=== PATIENT | male | born 1970 | race American Indian/Alaskan Native ===

== ENCOUNTER 2020-08-30 16:28 | Inpatient (IN) | payer OTHER, SELFPAY ==
[2020-08-30] MEDS ORDERED: cefTRIAXone/NS 1 GM/50 ML 1 GM/50 ML BAG IV ONE (20:37)
[2020-08-30] MEDS ORDERED: ONDANSETRON 4 MG/2 ML INJ IV ONE (20:37)
[2020-08-30] MEDS ORDERED: SODIUM CHLORIDE 0.9% 1000 ML 1,000 ML IV ONE (20:37)
[2020-08-30] MEDS ORDERED: AZITHROMYCIN/NS 500 MG/250 ML 500 MG/250 ML BAG IV ONE (20:37)
--- NOTE | 2020-08-30 20:57 | Emergency Department Report ---
<FAREED FOX III - Last Filed: 08/30/20 22:17> ED Shortness of Breath HPI - General Chief Complaint: Dyspnea/Respdistress Stated Complaint: COVID+/WEAK Time Seen by Provider: 08/30/20 20:36 - Related Data Allergies Allergy/AdvReac Type Severity Reaction Status Date / Time No Known Allergies Allergy Unverified 08/30/20 16:57 ED Course - Reevaluation(s) Reevaluation #1: I reviewed the findings and management of this patient in real-time and I have personally seen and examined this patient and participated in the decision making for this patient with the midlevel. Patient is a 49-year-old male that presents emergency room with complaints of difficulty breathing and respiratory symptoms. Patient found to have Covid pneumonia. Patient is hypoxic. Patient is currently on oxygen therapy. Patient has not had the COVID-19 vaccine. I examined the patient. Patient's lung sounds are clear to auscultation. Patient's CV exam shows normal S1-S2. Patient's abdominal exam is negative. Patient skin exam is negative. I discussed all results with patient. I discussed plan of care with patient. Patient agrees with plan of care and admission. Patient to be admitted to the hospitalist service. 08/30/20 22:17 - Consultations Consultation #1: Hospitalist consulted for admission. Hospitalist to admit patient. 08/30/20 22:19 ED Medical Decision Making - Lab Data Result diagrams: 08/30/20 20:50 08/30/20 20:50 ED Disposition Clinical Impression: COVID-19, Hypoxia Disposition: DC-09 OP ADMIT IP TO THIS HOSP Condition: Serious Referrals: PRIMARY CARE, [Primary Care Provider] - 3-5 Days Print Language: VINCENTIAN <CHARLI DENISE - Last Filed: 08/30/20 22:34> ED Shortness of Breath HPI - General Source: patient Mode of arrival: Ambulatory Limitations: No Limitations - History of Present Illness Initial Comments: Patient is a 49-year-old male presents emergency room complaints of shortness of breath that began a week ago. He states that he tested positive for COVID-19 yesterday. He has associated cough, generalized weakness, vomiting, diarrhea, fever, chills, generalized body aches. He denies any sore throat, ear pain, abdominal pain, chest pain. No past medical history. No allergies to medications. He states he is a non-smoker. He states he just got back from [place]. ED Review of Systems ROS: Stated complaint: COVID+/WEAK Other details as noted in HPI Comment: All other systems reviewed and negative ED Past Medical Hx - Past Medical History Previous Medical History?: No - Surgical History Past Surgical History?: No ED Physical Exam - General Limitations: No Limitations General appearance: alert, in no apparent distress - Head Head exam: Present: atraumatic, normocephalic - Eye Eye exam: Present: normal appearance - ENT ENT exam: Present: mucous membranes moist - Respiratory Respiratory exam: Present: decreased breath sounds. Absent: respiratory distress, wheezes, rales, rhonchi, stridor, chest wall tenderness, accessory mu scle use, prolonged expiratory - Cardiovascular Cardiovascular Exam: Present: regular rate, normal rhythm, normal heart sounds. Absent: systolic murmur, diastolic murmur, rubs, gallop - Neurological Exam Neurological exam: Present: alert, oriented X3 - Psychiatric Psychiatric exam: Present: normal affect, normal mood - Skin Skin exam: Present: warm, dry, intact ED Course Vital Signs 08/30/20 08/30/20 16:28 16:57 Temperature 98.7 F Pulse Rate 72 102 H Respiratory 18 Rate Blood Pressure 124/76 110/66 [Right] O2 Sat by Pulse 90 98 Oximetry ED Medical Decision Making - Lab Data Result diagrams: 08/30/20 20:50 08/30/20 20:50 Lab Results 08/30/20 08/30/20 08/30/20 Range/Units 20:50 20:50 20:50 WBC 10.3 (4.5-11.0) K/mm3 RBC 3.56 L (3.65-5.03) M/mm3 Hgb 11.6 L (11.8-15.2) gm/dl Hct 34.2 L (35.5-45.6) % MCV 96 H (84-94) fl MCH 33 H (28-32) pg MCHC 34 (32-34) % RDW 13.1 L (13.2-15.2) % Plt Count 292 (140-440) K/mm3 [place] % (Auto) [facility] D-Dimer 612.11 H (0-234) ng/mlDDU Sodium (137-145) mmol/L Potassium (3.6-5.0) mmol/L Chloride (98-107) mmol/L Carbon Dioxide (22-30) mmol/L Anion Gap mmol/L BUN (9-20) mg/dL Creatinine (0.8-1.3) mg/dL Estimated GFR ml/min BUN/Creatinine Ratio % Glucose 109 H (75-100) mg/dL Calcium (8.4-10.2) mg/dL Total Bilirubin (0.1-1.2) mg/dL AST (5-40) units/L ALT (7-56) units/L Alkaline Phosphatase (35-129) units/L Lactate Dehydrogenase 1104 H (91-180) units/L C-Reactive Protein 12.20 H (0.00-1.30) mg/dL Total Protein (6.3-8.2) g/dL Albumin (3.9-5) g/dL Albumin/Globulin Ratio % 08/30/ Range/Units 20:50 WBC (4.5-11.0) K/mm3 RBC (3.65-5.03) M/mm3 Hgb (11.8-15.2) gm/dl Hct (35.5-45.6) % MCV (84-94) fl MCH (28-32) pg MCHC (32-34) % RDW (13.2-15.2) % Plt Count (140-440) K/mm3 [place] % (Auto) D-Dimer (0-234) ng/mlDDU Sodium 133 L (137-145) mmol/L Potassium 4.3 (3.6-5.0) mmol/L Chloride 93.4 L (98-107) mmol/L Carbon Dioxide 25 (22-30) mmol/L Anion Gap 19 mmol/L BUN 16 (9-20) mg/dL Creatinine 1.0 (0.8-1.3) mg/dL Estimated GFR > 60 ml/min BUN/Creatinine Ratio 16 % Glucose 111 H (75-100) mg/dL Calcium 8.7 (8.4-10.2) mg/dL Total Bilirubin 2.30 H (0.1-1.2) mg/dL AST 194 H (5-40) units/L ALT 106 H (7-56) units/L Alkaline Phosphatase 123 (35-129) units/L Lactate Dehydrogenase (91-180) units/L C-Reactive Protein (0.00-1.30) mg/dL Total Protein 7.0 (6.3-8.2) g/dL Albumin 4.1 (3.9-5) g/dL Albumin/Globulin Ratio 1.4 % Vital Signs 08/30/20 08/30/20 16:28 16:57 Temperature 98.7 F Pulse Rate 72 102 H Respiratory 18 Rate Blood Pressure 124/76 110/66 [Right] O2 Sat by Pulse 90 98 Oximetry - Radiology Data Radiology results: report reviewed Ordering Physician: GUCCI YING Date of Service: 08/30/20 Procedure(s): XR chest routine 2V Accession Number(s): [id number] cc: GUCCI YING Fluoro Time In Minutes: CHEST 2 VIEWS INDICATION / CLINICAL INFORMATION: COVID +, SOB. COMPARISON: None available. FINDINGS: SUPPORT DEVICES: None. HEART / MEDIASTINUM: No significant abnormality. LUNGS / PLEURA: Mild increased interstitial prominence within the lungs with peribronchial cuffing No pneumothorax. Signer Name: Michael Claros MD Signed: 08/30/2020 9:25 PM Workstation Name: [id number] Transcribed By: CW Dictated By: BREONNA CLAROS MD Electronically Authenticated By: BREONNA CLAROS MD Signed Date/Time: 08/30/202124 DD/ 23 TD/TT: - Medical Decision Making Patient is a 49-year-old male presents emergency room complaints of shortness of breath that began a week ago. He states that he tested positive for COVID-19 yesterday. He has associated cough, generalized weakness, vomiting, diarrhea, fever, chills, generalized body aches. He denies any sore throat, ear pain, abdominal pain, chest pain. No past medical history. No allergies to medications. He states he is a non-smoker. He states he just got back from [place]. Patient's oxygen saturation is 90% on room air, patient placed on nasal cannula with improvement of his oxygen. Lab significant for elevated inflammatory markers consistent with COVID-19. CXR: SUPPORT DEVICES: None. HEART / MEDIASTINUM: No significant abnormality. LUNGS / PLEURA: Mild increased interstitial prominence within the lungs with peribronchial cuffing No pneumothorax. due to COVID 19 with PNA and hypoxia pt will be admitted. discussed case with DR. Fox, ER attending who agrees with admission. Dr. Loja, hospitalist will accept and resume care of pt. Critical Care Time: Yes Critical care time in (mins) excluding proc time.: 35 Critical care attestation.: If time is entered above; I have spent that time in minutes in the direct care of this critically ill patient, excluding procedure time. Critical Care Time: critical care time includes multiple reexaminations, interpretation of diagnostic and laboratory testing, consultations ED Disposition Is pt being admited?: Yes Does the pt Need Aspirin: No Time of Disposition: 21:58
--- NOTE | 2020-08-30 21:29 | XRay Report ---
CHEST 2 VIEWS INDICATION / CLINICAL INFORMATION: COVID +, SOB. COMPARISON: None available. FINDINGS: SUPPORT DEVICES: None. HEART / MEDIASTINUM: No significant abnormality. LUNGS / PLEURA: Mild increased interstitial prominence within the lungs with peribronchial cuffing No pneumothorax. Signer Name: Michael Claros MD Signed: 08/30/2020 9:25 PM Workstation Name: [id number]
[2020-08-30 21:31] LABS: Hematocrit 34.2 % (35.5-45.6); Hemoglobin 11.6 gm/dl (11.8-15.2); Mean Corpuscular HGB Conc 34 % (32-34); Mean Corpuscular Volume 96 fl (84-94); Platelet Count 292 K/mm3 (140-440); Red Blood Count 3.56 M/mm3 (3.65-5.03); Red Cell Distribution Width 13.1 % (13.2-15.2)
[2020-08-30 21:41] LABS: Alanine Aminotransferase 106 units/L (7-56); Albumin 4.1 g/dL (3.9-5); BUN/Creatinine Ratio 16; Blood Urea Nitrogen 16 mg/dL (9-20); Calcium 8.7 mg/dL (8.4-10.2); Hemolysis Index 11
[2020-08-30 21:42] LABS: C-Reactive Protein 12.2 mg/dL (0.00-1.30)
[2020-08-30] MEDS ORDERED: dexAMETHasone 4 MG/ML VIAL IV ONE (21:52)
[2020-08-30 22:21] LABS: RBC Morphology Normal; Total Cells Counted 100
--- NOTE | 2020-08-30 23:07 | History and Physical Report ---
History of Present Illness Date of examination: 08/30/20 Date of admission: 08/30/20 22:11 Chief complaint: shortness of breath History of present illness: This is ED work-up a 49-year-old male that presents emergency room with complaints of difficulty breathing and respiratory symptoms. Patient found to have Covid pneumonia. Patient is hypoxic. Patient is currently on oxygen therapy. Patient has not had the COVID-19 vaccine. WBC 10.3, hemoglobin 11.6, platelets 292, D-dimer 612.11, sodium 133, potassium 4.3, creatinine 1.0 serum glucose 111 ferritin six 614.0, AST 192, ALT 106, lactate dehydrogenase 1104, CEA reactive protein 12.2. Patient seen at bedside in ED. Patient is on oxygen by nasal cannula. Patient said he was tested positive for Covid 19. He reported a history of shortness of breath for about 1 week that made him go and check for Covid. I reviewed patient medication records vital signs and lab values. Will start patient on Covid protocol including airborne and contact isolation. Past History Past Medical History: denies: hyperthyroidism, hypertension, hyperlipidemia Past Surgical History: No surgical history Social history: lives with family, alcohol abuse (marijuana use) Family history: hypertension (father diet of juli) Medications and Allergies Allergies Allergy/AdvReac Type Severity Reaction Status Date / Time No Known Allergies Allergy Unverified 08/30/20 16:57 Review of Systems Constitutional: weakness, malaise, no lethargy Ears, nose, mouth and throat: no epistaxis, no bleeding gums Cardiovascular: shortness of breath Gastrointestinal: no melena, no hematochezia Rectal: no itching, no hemorrhoids Musculoskeletal: muscle weakness, muscle cramps, myalgias Integumentary: no rash, no pruritis Psychiatric: no anxiety, no suicidal ideation, no disorientation Hematologic/Lymphatic: no easy bruising, no easy bleeding Allergic/Immunologic: no urticaria, no allergic rhinitis Exam - Constitutional Vitals: Temp Pulse Resp BP Pulse Ox 98.7 F 80 22 121/68 98 08/30/20 16:57 08/30/20 22:30 08/30/20 22:30 08/30/20 22:30 08/30/20 22:30 General appearance: Present: mild distress, well-nourished - EENT Eyes: Present: PERRL ENT: hearing intact, clear oral mucosa - Neck Neck: Present: supple, normal ROM - Respiratory Respiratory effort: normal Respiratory: bilateral: CTA - Cardiovascular Heart Sounds: Present: S1 & S2. Absent: rub, click - Extremities Extremities: pulses symmetrical, No edema Peripheral Pulses: within normal limits - Abdominal General gastrointestinal: Present: soft, non-tender, non-distended, normal bowel sounds Male genitourinary: Present: normal - Integumentary Integumentary: Present: clear, warm, dry - Musculoskeletal Musculoskeletal: gait normal, strength equal bilaterally - Psychiatric Psychiatric: appropriate mood/affect, intact judgment & insight - Neurologic Neurologic: CNII-XII intact, moves all extremities - Allied Health Allied health notes reviewed: nursing Results - Labs CBC & Chem 7: 08/30/20 20:50 08/30/20 20:50 Labs: Abnormal lab results 08/30/20 08/30/20 08/30/20 Range/Units 20:50 20:50 20:50 RBC (3.65-5.03) M/mm3 Hgb (11.8-15.2) gm/dl Hct (35.5-45.6) % MCV (84-94) fl MCH (28-32) pg RDW (13.2-15.2) % Seg Neuts % (Manual) (40.0-70.0) % Monocytes % (Manual) (0.0-7.3) % Monocytes # (Manual) (0.0-0.8) K/mm3 D-Dimer 612.11 H (0-234) ng/mlDDU Sodium (137-145) mmol/L Chloride (98-107) mmol/L Glucose 109 H (75-100) mg/dL Ferritin 6614.0 H (30.0-300.0) ng/mL Total Bilirubin (0.1-1.2) mg/dL AST (5-40) units/L ALT (7-56) units/L Lactate Dehydrogenase 1104 H (91-180) units/L C-Reactive Protein 12.20 H (0.00-1.30) mg/dL 08/30/20 08/30/20 Range/Units 20:50 20:50 RBC 3.56 L (3.65-5.03) M/mm3 Hgb 11.6 L (11.8-15.2) gm/dl Hct 34.2 L (35.5-45.6) % MCV 96 H (84-94) fl MCH 33 H (28-32) pg RDW 13.1 L (13.2-15.2) % Seg Neuts % (Manual) 71.0 H (40.0-70.0) % Monocytes % (Manual) 13.0 H (0.0-7.3) % Monocytes # (Manual) 1.3 H (0.0-0.8) K/mm3 D-Dimer (0-234) ng/mlDDU Sodium 133 L (137-145) mmol/L Chloride 93.4 L (98-107) mmol/L Glucose 111 H (75-100) mg/dL Ferritin (30.0-300.0) ng/mL Total Bilirubin 2.30 H (0.1-1.2) mg/dL AST 194 H (5-40) units/L ALT 106 H (7-56) units/L Lactate Dehydrogenase (91-180) units/L C-Reactive Protein (0.00-1.30) mg/dL Assessment and Plan - Patient Problems (1) COVID-19 Current Visit: Yes Status: Acute Plan to address problem: Continue isolation airborne Continue systemic steroid and empiric antibiotic Encourage patient prone position and the use of incentive spirometer [place] inflammatory markers Patient has elevated D-dimer we will check CT of the chest rule out PE ID consult. Follow-up with plan of care. Ascorbic acid, zinc sulfate, selenium, and vitamin D supplements (2) Acute respiratory failure with hypoxia Current Visit: Yes Status: Acute Plan to address problem: Continue bronchodilator and oxygen supplement ABG and human geography instructor consult (3) Marijuana use Current Visit: Yes Status: Acute Plan to address problem: Discussed cessation (4) DVT prophylaxis Current Visit: Yes Status: Acute Plan to address problem: Lovenox
[2020-08-30] MEDS ORDERED: traZODone 50 MG TAB PO PRN (23:20)
[2020-08-30] MEDS ORDERED: ONDANSETRON 4 MG/2 ML INJ IV PRN (23:21)
[2020-08-30] MEDS ORDERED: MORPHINE 2 MG/1 ML INJ IV PRN (23:21)
[2020-08-30] MEDS ORDERED: METOCLOPRAMIDE 10 MG/2 ML INJ IV PRN (23:21)
[2020-08-30] MEDS ORDERED: MAGNESIUM HYDROXIDE (MOM) ORAL LIQD UDC PO PRN (23:21)
[2020-08-30] MEDS ORDERED: oxyCODONE /ACETAMINOPHEN 5-325MG TAB PO PRN (23:21)
[2020-08-30] MEDS ORDERED: NALOXONE 0.4 MG/1 ML INJ IV PRN (23:21)
[2020-08-30] MEDS ORDERED: SENNOSIDES 8.6 MG TAB PO PRN (23:21)
[2020-08-30] MEDS ORDERED: ALUM-MAG HYDROXIDE-SIMETHICONE 200-200-20MG/5ML ORAL LIQD 30 ML PO PRN (23:21)
[2020-08-30] MEDS ORDERED: ACETAMINOPHEN 325 MG TAB PO PRN (23:21)
--- NOTE | 2020-08-31 02:03 | Cat Scan Report ---
CTA CHEST WITH IV CONTRAST INDICATION: Patient has difficulty breathing / Hypoxia / Covid-19 Positive. TECHNIQUE: Axial CT images were obtained through the chest after injection of 100 cc Omnipaque 350 IV contrast. 3 plane MIP reconstructions were produced. All CT scans at this location are performed using CT dose reduction for ALARA by means of automated exposure control. COMPARISON: 2 views of the chest from 08/30/2020. FINDINGS: PULMONARY ARTERIES: No pulmonary emboli. AORTA AND ARTERIES: The aorta is normal in caliber. No significant atherosclerosis. No other signific ant abnormality. HEART: No significant abnormality. MEDIASTINUM: No significant abnormality. LUNGS: Generalized bilateral groundglass opacities/consolidations are noted without a suspicious nodu le or mass. No pneumothorax or pleural effusion. ADDITIONAL FINDINGS: None. UPPER ABDOMEN: No acute findings. A left upper renal pole cyst measures up to 3.1 cm. BONES: No significant osseous abnormality. IMPRESSION: 1. No CT evidence for pulmonary embolism. 2. Bilateral pneumonia. Signer Name: Arron Franklin MD Signed: 08/31/2020 1:58 AM Workstation Name: [id number]
[2020-08-31] MEDS: SODIUM CHLORIDE 0.9% 1000 ML 1,000 ML IV SCH (02:56)
[2020-08-31 09:01] LABS: Basophils % (Auto) 0.3 % (0.0-1.8); Hematocrit 31.8 % (35.5-45.6); Hemoglobin 10.8 gm/dl (11.8-15.2); Lymphocytes # (Auto) 0.6 K/mm3 (1.2-5.4); Lymphocytes % (Auto) 8.1 % (13.4-35.0); Mean Corpuscular HGB Conc 34 % (32-34); Mean Corpuscular Volume 95 fl (84-94); Monocytes % (Auto) 14.1 % (0.0-7.3); Platelet Count 340 K/mm3 (140-440); Red Blood Count 3.36 M/mm3 (3.65-5.03); Red Cell Distribution Width 12.7 % (13.2-15.2)
[2020-08-31 09:27] LABS: Alanine Aminotransferase 93 units/L (7-56); Albumin 3.7 g/dL (3.9-5); BUN/Creatinine Ratio 19; Blood Urea Nitrogen 15 mg/dL (9-20); Calcium 8.7 mg/dL (8.4-10.2); Hemolysis Index 10
[2020-08-31] MEDS: dexAMETHasone 4 MG/ML VIAL IV SCH (09:46)
[2020-08-31] MEDS: cefTRIAXone/NS 1 GM/50 ML 1 GM/50 ML BAG IV SCH (09:47)
[2020-08-31] MEDS: AZITHROMYCIN/NS 500 MG/250 ML 500 MG/250 ML BAG IV SCH (09:47)
[2020-08-31] MEDS: CHOLECALCIFEROL (VIT D3) 1000 UNIT (25 mcg) TAB PO SCH (09:47)
[2020-08-31] MEDS: FAMOTIDINE 20 MG/2 ML INJ IV SCH ×2 (09:48→22:35)
[2020-08-31] MEDS: ZINC SULFATE 220 MG CAP PO SCH (09:48)
[2020-08-31] MEDS: ASCORBIC ACID 500 MG TAB PO SCH (09:48)
[2020-08-31] MEDS ORDERED: dexAMETHasone 4 MG/ML VIAL IV SCH (10:00)
[2020-08-31] MEDS ORDERED: ENOXAPARIN 40 MG/0.4 ML INJ SUB-Q SCH (10:00)
--- NOTE | 2020-08-31 10:51 | Progress Note ---
Assessment and Plan Assessment and plan: This is ED work-up a 49-year-old male that presents emergency room with complaints of difficulty breathing and respiratory symptoms. Patient found to have Covid pneumonia. Patient is hypoxic. Patient is currently on oxygen therapy. Patient has not had the COVID-19 vaccine. WBC 10.3, hemoglobin 11.6, platelets 292, D-dimer 612.11, sodium 133, potassium 4.3, creatinine 1.0 serum glucose 111 ferritin six 614.0, AST 192, ALT 106, lactate dehydrogenase 1104, CEA reactive protein 12.2. Patient seen at bedside in ED. Patient is on oxygen by nasal cannula. Patient said he was tested positive for Covid 19. He reported a history of shortness of breath for about 1 week that made him go and check for Covid. I reviewed patient medication records vital signs and lab values. Will start patient on Covid protocol including airborne and contact isolation. Chest x-ray shows peribronchial cuffing. 08/31: Patient on 4 L of oxygen await ID for remdesivir ordered. Continue steroids at this time per protocol. Will change to full dose anticoagulation although CTA is negative for PE. Will monitor inflammatory markers. 15 minutes counseling given to the patient on tobacco use and marijuana use he verbalized understanding. We will give 20 of Lasix x3 days due to borderline low blood pressure. And continue to monitor for improvement. (1) COVID-19 Current Visit: Yes Status: Acute Plan to address problem: Continue isolation airborne Continue systemic steroid and empiric antibiotic Encourage patient prone position and the use of incentive spirometer Mannitol inflammatory markers Patient has elevated D-dimer we will check CT of the chest rule out PE ID consult. Follow-up with plan of care. Ascorbic acid, zinc sulfate, selenium, and vitamin D supplements (2) Acute respiratory failure with hypoxia Current Visit: Yes Status: Acute Plan to address problem: Continue bronchodilator and oxygen supplement ABG and loom fixer supervisor consult (3) Marijuana use Current Visit: Yes Status: Acute Plan to address problem: Discussed cessation (4) mild hypertensive (5) DVT prophylaxis Current Visit: Yes Status: Acute Plan to address problem: Lovenox History Interval history: Patient seen and examined this morning is on 4 L of oxygen. Reported that he presented due to dizziness and weakness. He did not take the vaccine because he did not trust that. Now he plans to take it after he recovers. Hospitalist Physical - Physical exam Narrative exam: VITAL SIGNS: Reviewed. GENERAL: The patient appears normally developed, obese vital signs as documented. HEAD: No signs of head trauma. EYES: Pupils are equal. Extraocular motions intact. EARS: Hearing grossly intact. MOUTH: Oropharynx is normal. NECK: No adenopathy, no JVD. CHEST: Chest with diminished breath sounds bilaterally. No wheezes, rales, or rhonchi. CARDIAC: Mildly tachycardic otherwise regular rhythm. S1 and S2, without murmurs, gallops, or rubs. VASCULAR: No Edema. Peripheral pulses normal and equal in all extremities. ABDOMEN: Soft, non tender and non distended. No rebound or guarding, and no masses palpated. Bowel Sounds normal. MUSCULOSKELETAL: Good range of motion of all major joints. Extremities without clubbing, cyanosis or edema. NEUROLOGIC EXAM: Alert and oriented x 3 No focal sensory or strength deficits. Speech normal. Follows commands. PSYCHIATRIC: Mood anxious l. SKIN: detail exam as documented in skin assessment - Constitutional Vitals: Temp Pulse Resp BP Pulse Ox 97.6 F 71 20 108/66 96 08/31/20 02:28 08/31/20 02:28 08/31/20 02:28 08/31/20 02:28 08/31/20 02:28 General appearance: Present: mild distress, well-nourished Results - Labs CBC & Chem 7: 08/31/20 08:23 08/31/20 08:23 Labs: Laboratory Last Values WBC 7.2 K/mm3 (4.5-11.0) 08/31/20 08:23 RBC 3.36 M/mm3 (3.65-5.03) L 08/31/20 08:23 Hgb 10.8 gm/dl (11.8-15.2) L 08/31/20 08:23 Hct 31.8 % (35.5-45.6) L 08/31/20 08:23 MCV 95 fl (84-94) H 08/31/20 08:23 MCH 32 pg (28-32) 08/31/20 08:23 MCHC 34 % (32-34) 08/31/20 08:23 RDW 12.7 % (13.2-15.2) L 08/31/20 08:23 Plt Count 340 K/mm3 (140-440) 08/31/20 08:23 Lymph % (Auto) 8.1 % (13.4-35.0) L 08/31/20 08:23 [place] % (Auto) 14.1 % (0.0-7.3) H 08/31/20 08:23 Eos % (Auto) 0.0 % (0.0-4.3) 08/31/20 08:23 Baso % (Auto) 0.3 % (0.0-1.8) 08/31/20 08:23 Lymph # (Auto) 0.6 K/mm3 (1.2-5.4) L 08/31/20 08:23 [place] # (Auto) 1.0 K/mm3 (0.0-0.8) H 08/31/20 08:23 Eos # (Auto) 0.0 K/mm3 (0.0-0.4) 08/31/20 08:23 Baso # (Auto) 0.0 K/mm3 (0.0-0.1) 08/31/20 08:23 Add Manual Diff Complete 08/30/20 20:50 Total Counted 100 08/30/20 20:50 Seg Neutrophils % 77.5 % (40.0-70.0) H 08/31/20 08:23 Seg Neuts % (Manual) 71.0 % (40.0-70.0) H 08/30/20 20:50 Lymphocytes % (Manual) 16.0 % (13.4-35.0) 08/30/20 20:50 Monocytes % (Manual) 13.0 % (0.0-7.3) H 08/30/20 20:50 Nucleated RBC % Not Reportable 08/30/20 20:50 Seg Neutrophils # 5.6 K/mm3 (1.8-7.7) 08/31/20 08:23 Seg Neutrophils # Man 7.3 K/mm3 (1.8-7.7) 08/30/20 20:50 Band Neutrophils # 0.0 K/mm3 08/30/20 20:50 Lymphocytes # (Manual) 1.6 K/mm3 (1.2-5.4) 08/30/20 20:50 Abs React Lymphs (Man) 0.0 K/mm3 08/30/20 20:50 Monocytes # (Manual) 1.3 K/mm3 (0.0-0.8) H 08/30/20 20:50 Eosinophils # (Manual) 0.0 K/mm3 (0.0-0.4) 08/30/20 20:50 Basophils # (Manual) 0.0 K/mm3 (0.0-0.1) 08/30/20 20:50 Metamyelocytes # 0.0 K/mm3 08/30/20 20:50 Myelocytes # 0.0 K/mm3 08/30/20 20:50 Promyelocytes # 0.0 K/mm3 08/30/20 20:50 Blast Cells # 0.0 K/mm3 08/30/20 20:50 WBC Morphology Not Reportable 08/30/20 20:50 Hypersegmented Neuts Not Reportable 08/30/20 20:50 Hyposegmented Neuts Not Reportable 08/30/20 20:50 Hypogranular Neuts Not Reportable 08/30/20 20:50 Smudge Cells Not Reportable 08/30/20 20:50 Toxic Granulation Not Reportable 08/30/20 20:50 Toxic Vacuolation Not Reportable 08/30/20 20:50 Dohle Bodies Not Reportable 08/30/20 20:50 Pelger-Huet Anomaly Not Reportable 08/30/20 20:50 Marcelo Rods Not Reportable 08/30/20 20:50 Platelet Estimate Not Reportable 08/30/20 20:50 Clumped Platelets Not Reportable 08/30/20 20:50 Plt Clumps, EDTA Not Reportable 08/30/20 20:50 Large Platelets Not Reportable 08/30/20 20:50 Giant Platelets Not Reportable 08/30/20 20:50 Platelet Satelliting Not Reportable 08/30/20 20:50 Plt Morphology Comment Not Reportable 08/30/20 20:50 RBC Morphology Normal 08/30/20 20:50 Dimorphic RBCs Not Reportable 08/30/20 20:50 Polychromasia Not Reportable 08/30/20 20:50 Hypochromasia Not Reportable 08/30/20 20:50 Poikilocytosis Not Reportable 08/30/20 20:50 Anisocytosis Not Reportable 08/30/20 20:50 Microcytosis Not Reportable 08/30/20 20:50 Macrocytosis Not Reportable 08/30/20 20:50 Spherocytes Not Reportable 08/30/20 20:50 Pappenheimer Bodies Not Reportable 08/30/20 20:50 Sickle Cells Not Reportable 08/30/20 20:50 Target Cells Not Reportable 08/30/20 20:50 Tear Drop Cells Not Reportable 08/30/20 20:50 Ovalocytes Not Reportable 08/30/20 20:50 Helmet Cells Not Reportable 08/30/20 20:50 [place] Bodies Not Reportable 08/30/20 20:50 [place] Rings Not Reportable 08/30/20 20:50 [place]mar Cells Not Reportable 08/30/20 20:50 Bite Cells Not Reportable 08/30/20 20:50 Crenated Cell Not Reportable 08/30/20 20:50 Elliptocytes Not Reportable 08/30/20 20:50 Acanthocytes (Spur) Not Reportable 08/30/20 20:50 Rouleaux Not Reportable 08/30/20 20:50 Hemoglobin C Crystals Not Reportable 08/30/20 20:50 Schistocytes Not Reportable 08/30/20 20:50 Malaria parasites Not Reportable 08/30/20 20:50 Raymundo Bodies Not Reportable 08/30/20 20:50 Hem Pathologist Commnt No 08/30/20 20:50 D-Dimer 612.11 ng/mlDDU (0-234) H 08/30/20 20:50 Sodium 137 mmol/L (137-145) 08/31/20 08:23 Potassium 4.8 mmol/L (3.6-5.0) 08/31/20 08:23 Chloride 97.8 mmol/L (98-107) L 08/31/20 08:23 Carbon Dioxide 28 mmol/L (22-30) 08/31/20 08:23 Anion Gap 16 mmol/L 08/31/20 08:23 BUN 15 mg/dL (9-20) 08/31/20 08:23 Creatinine 0.8 mg/dL (0.8-1.3) 08/31/20 08:23 Estimated GFR > 60 ml/min 08/31/20 08:23 BUN/Creatinine Ratio 19 % 08/31/20 08:23 Glucose 136 mg/dL (75-100) H 08/31/20 08:23 Hemoglobin A1c 4.7 % (4-6) 08/31/20 01:00 Calcium 8.7 mg/dL (8.4-10.2) 08/31/20 08:23 Ferritin 5794.0 ng/mL (30.0-300.0) H 08/31/20 01:00 Total Bilirubin 1.80 mg/dL (0.1-1.2) H 08/31/20 08:23 AST 122 units/L (5-40) H 08/31/20 08:23 ALT 93 units/L (7-56) H 08/31/20 08:23 Alkaline Phosphatase 114 units/L (35-129) 08/31/20 08:23 Lactate Dehydrogenase 1070 units/L (91-180) H 08/31/20 01:00 C-Reactive Protein 11.00 mg/dL (0.00-1.30) H 08/31/20 01:00 Total Protein 7.2 g/dL (6.3-8.2) 08/31/20 08:23 Albumin 3.7 g/dL (3.9-5) L 08/31/20 08:23 Albumin/Globulin Ratio 1.1 % 08/31/20 08:23 Procalcitonin 0.25 ng/mL (<0.15) 08/30/20 20:50 Active Medications - Current Medications Current Medications: Generic Name Dose Route Start Last Admin Trade Name Freq PRN Reason Stop Dose Admin Acetaminophen 650 mg 08/30/20 23:21 Acetaminophen 325 Mg Tab PO Q4H PRN Pain MILD(1-3)/Fever >100.5/TERRELL Al Hydrox/Mg Hydrox/Simethicone 30 ml 08/30/20 23:21 Alum-Mag Hydroxide-Simethicone 285-840-43xb/5ml Oral Liqd 30 Ml PO Q4H PRN Indigestion Ascorbic Acid 500 mg 08/31/20 10:00 08/31/20 09:48 Ascorbic Acid 500 Mg Tab PO 500 mg QDAY MIKEY Administration Cholecalciferol 1,000 unit 08/31/20 10:00 08/31/20 09:47 Cholecalciferol (Vit D3) 1000 Unit (25 Mcg) Tab PO 1,000 unit QDAY MIKEY Administration Dexamethasone 6 mg 08/31/20 10:00 08/31/20 09:46 Dexamethasone 4 Mg/Ml Vial IV 6 mg DAILY MIKEY Administration Enoxaparin Sodium 100 mg 08/31/20 22:00 Enoxaparin 100 Mg/1 Ml Inj SUB-Q Q12HR MIKEY Protocol Famotidine 20 mg 08/31/20 10:00 08/31/20 09:48 Famotidine 20 Mg/2 Ml Inj IV 20 mg BID MIKEY Administration Furosemide 20 mg 08/31/20 12:00 Furosemide 40 Mg/4 Ml Inj IV 09/02/20 10:01 DAILY MIKEY Azithromycin 500 mg in 250 mls @ 250 mls/hr 08/31/20 10:00 08/31/20 09:47 Zithromax/Ns IV 250 mls/hr Q24HR MIKEY Administration Ceftriaxone Sodium 1 gm in 50 mls @ 100 mls/hr 08/31/20 10:00 08/31/20 09:47 Rocephin/Ns 1 Gm/50 Ml IV 100 mls/hr Q24HR MIKEY Administration Protocol Sodium Chloride 1,000 mls @ 75 mls/hr 08/30/20 23:30 08/31/20 02:56 Nacl 0.9% 1000 Ml IV 75 mls/hr DIRECT MIKEY Administration Magnesium Hydroxide 30 ml 08/30/20 23:21 Magnesium Hydroxide (Mom) Oral Liqd Udc PO Q4H PRN Constipation Metoclopramide HCl 10 mg 08/30/20 23:21 Metoclopramide 10 Mg/2 Ml Inj IV Q6H PRN Nausea And Vomiting Naloxone HCl 0.1 mg 08/30/20 23:21 Naloxone 0.4 Mg/1 Ml Inj IV Q2MIN PRN Res Rate </= 8 or 02 SAT < 92% Ondansetron HCl 4 mg 08/30/20 23:21 Ondansetron 4 Mg/2 Ml Inj IV Q8H PRN Nausea And Vomiting Oxycodone/Acetaminophen 1 tab 08/30/20 23:21 08/31/20 10:10 Oxycodone /Acetaminophen 5-325mg Tab PO 1 tab Q6H PRN Administration Pain, Moderate (4-6) Senna 8.6 mg 08/30/20 23:21 Sennosides 8.6 Mg Tab PO Q12HR PRN Constipation Sodium Chloride 10 ml 08/31/20 10:00 08/31/20 09:48 Sodium Chloride 0.9% 10 Ml Flush Syringe IV 10 ml BID MIKEY Administration Sodium Chloride 10 ml 08/30/20 23:21 Sodium Chloride 0.9% 10 Ml Flush Syringe IV PRN PRN LINE FLUSH Trazodone HCl 50 mg 08/30/20 23:20 Trazodone 50 Mg Tab PO QHS PRN Insomnia Zinc Sulfate 220 mg 08/31/20 10:00 08/31/20 09:48 Zinc Sulfate 220 Mg Cap PO 220 mg QDAY MIKEY Administration
[2020-08-31] MEDS ORDERED: FUROSEMIDE 40 MG/4 ML INJ IV NR (12:00)
[2020-08-31] MEDS: FUROSEMIDE 40 MG/4 ML INJ IV SCH (15:08)
--- NOTE | 2020-08-31 18:21 | Vascular Lab Report ---
DUPLEX DOPPLER LOWER EXTREMITY VEINS, Bilateral INDICATION / CLINICAL INFORMATION: elevated d-dimer, covid positive. TECHNIQUE: Duplex doppler imaging was performed through the veins of the lower extremity using venous compressio n and other maneuvers. COMPARISON: None available. FINDINGS: COMMON FEMORAL VEIN: Negative. FEMORAL VEIN: Negative. POPLITEAL VEIN: Negative. CALF VEINS: Negative. ADDITIONAL FINDINGS: None. IMPRESSION: 1. No sonographic evidence for DVT Signer Name: Michael Claros MD Signed: 08/31/2020 6:16 PM Workstation Name: [id number]
[2020-08-31] MEDS: ENOXAPARIN 100 MG/1 ML INJ SUB-Q SCH (22:35)
[2020-09-01] MEDS: SODIUM CHLORIDE 0.9% 1000 ML 1,000 ML IV SCH ×2 (06:00→20:25)
[2020-09-01 07:41] LABS: Hematocrit 31.2 % (35.5-45.6); Hemoglobin 10.8 gm/dl (11.8-15.2); Mean Corpuscular HGB Conc 35 % (32-34); Mean Corpuscular Volume 96 fl (84-94); Platelet Count 413 K/mm3 (140-440); Red Blood Count 3.24 M/mm3 (3.65-5.03); Red Cell Distribution Width 12.7 % (13.2-15.2)
[2020-09-01 08:00] LABS: Alanine Aminotransferase 138 units/L (7-56); Albumin 3.7 g/dL (3.9-5); BUN/Creatinine Ratio 22; Blood Urea Nitrogen 20 mg/dL (9-20); Calcium 8.8 mg/dL (8.4-10.2); Hemolysis Index 2
[2020-09-01] MEDS: CHOLECALCIFEROL (VIT D3) 1000 UNIT (25 mcg) TAB PO SCH (11:13)
[2020-09-01] MEDS: FAMOTIDINE 20 MG/2 ML INJ IV SCH ×2 (11:13→20:22)
[2020-09-01] MEDS: ENOXAPARIN 100 MG/1 ML INJ SUB-Q SCH ×2 (11:14→20:22)
[2020-09-01] MEDS: ZINC SULFATE 220 MG CAP PO SCH (11:14)
[2020-09-01] MEDS: dexAMETHasone 4 MG/ML VIAL IV SCH (11:14)
[2020-09-01] MEDS: ASCORBIC ACID 500 MG TAB PO SCH (11:14)
[2020-09-01] MEDS: FUROSEMIDE 40 MG/4 ML INJ IV SCH (11:14)
[2020-09-01] MEDS: cefTRIAXone/NS 1 GM/50 ML 1 GM/50 ML BAG IV SCH (11:14)
[2020-09-01] MEDS: AZITHROMYCIN/NS 500 MG/250 ML 500 MG/250 ML BAG IV SCH (11:15)
--- NOTE | 2020-09-01 12:29 | Progress Note ---
Assessment and Plan Assessment and plan: This is ED work-up a 49-year-old male that presents emergency room with complaints of difficulty breathing and respiratory symptoms. Patient found to have Covid pneumonia. Patient is hypoxic. Patient is currently on oxygen therapy. Patient has not had the COVID-19 vaccine. WBC 10.3, hemoglobin 11.6, platelets 292, D-dimer 612.11, sodium 133, potassium 4.3, creatinine 1.0 serum glucose 111 ferritin six 614.0, AST 192, ALT 106, lactate dehydrogenase 1104, CEA reactive protein 12.2. Patient seen at bedside in ED. Patient is on oxygen by nasal cannula. Patient said he was tested positive for Covid 19. He reported a history of shortness of breath for about 1 week that made him go and check for Covid. I reviewed patient medication records vital signs and lab values. Will start patient on Covid protocol including airborne and contact isolation. Chest x-ray shows peribronchial cuffing. 08/31: Patient on 4 L of oxygen await ID for remdesivir ordered. Continue steroids at this time per protocol. Will change to full dose anticoagulation although CTA is negative for PE. Will monitor inflammatory markers. 15 minutes counseling given to the patient on tobacco use and marijuana use he verbalized understanding. We will give 20 of Lasix x3 days due to borderline low blood pressure. And continue to monitor for improvement. 09/01: Continue steroid therapy for COVID-19. LFTs elevated likely secondary to the Covid virus will defer remdesivir to ID. Wean oxygen as tolerated. Conditi on remains guarded. (1) COVID-19 Current Visit: Yes Status: Acute Plan to address problem: Continue isolation airborne Continue systemic steroid and empiric antibiotic Encourage patient prone position and the use of incentive spirometer Mannitol inflammatory markers Patient has elevated D-dimer we will check CT of the chest rule out PE ID consult. Follow-up with plan of care. Ascorbic acid, zinc sulfate, selenium, and vitamin D supplements (2) Acute respiratory failure with hypoxia Current Visit: Yes Status: Acute Plan to address problem: Continue bronchodilator and oxygen supplement ABG and natural resource technician consult (3) Marijuana use Current Visit: Yes Status: Acute Plan to address problem: Discussed cessation (4) mild hypertensive (5) elevated LFTs (6) DVT prophylaxis Current Visit: Yes Status: Acute Plan to address problem: Lovenox History Interval history: Patient seen and examined this morning is on 4 L of oxygen. Per RT patient saturation this morning was 87% on 3 liters, and increased to Hospitalist Physical - Physical exam Narrative exam: VITAL SIGNS: Reviewed. GENERAL: The patient appears normally developed, obese vital signs as documented. HEAD: No signs of head trauma. EYES: Pupils are equal. Extraocular motions intact. EARS: Hearing grossly intact. MOUTH: Oropharynx is normal. NECK: No adenopathy, no JVD. CHEST: Chest with diminished breath sounds bilaterally. No wheezes, rales, or rhonchi. CARDIAC: Mildly tachycardic otherwise regular rhythm. S1 and S2, without murmurs, gallops, or rubs. VASCULAR: No Edema. Peripheral pulses normal and equal in all extremities. ABDOMEN: Soft, non tender and non distended. No rebound or guarding, and no masses palpated. Bowel Sounds normal. MUSCULOSKELETAL: Good range of motion of all major joints. Extremities without clubbing, cyanosis or edema. NEUROLOGIC EXAM: Alert and oriented x 3 No focal sensory or strength deficits. Speech normal. Follows commands. PSYCHIATRIC: Mood anxious l. SKIN: detail exam as documented in skin assessment - Constitutional Vitals: Temp Pulse Resp BP Pulse Ox 97.6 F 61 18 113/68 98 09/01/20 03:20 09/01/20 03:20 09/01/20 03:20 09/01/20 03:20 09/01/20 03:20 General appearance: Present: mild distress, well-nourished Results - Labs CBC & Chem 7: 09/01/20 06:45 09/01/20 06:45 Labs: Laboratory Last Values WBC 10.6 K/mm3 (4.5-11.0) 09/01/20 06:45 RBC 3.24 M/mm3 (3.65-5.03) L 09/01/20 06:45 Hgb 10.8 gm/dl (11.8-15.2) L 09/01/20 06:45 Hct 31.2 % (35.5-45.6) L 09/01/20 06:45 MCV 96 fl (84-94) H 09/01/20 06:45 MCH 33 pg (28-32) H 09/01/20 06:45 MCHC 35 % (32-34) H 09/01/20 06:45 RDW 12.7 % (13.2-15.2) L 09/01/20 06:45 Plt Count 413 K/mm3 (140-440) 09/01/20 06:45 Lymph % (Auto) 8.1 % (13.4-35.0) L 08/31/20 08:23 [place] % (Auto) 14.1 % (0.0-7.3) H 08/31/20 08:23 Eos % (Auto) 0.0 % (0.0-4.3) 08/31/20 08:23 Baso % (Auto) 0.3 % (0.0-1.8) 08/31/20 08:23 Lymph # (Auto) 0.6 K/mm3 (1.2-5.4) L 08/31/20 08:23 [place] # (Auto) 1.0 K/mm3 (0.0-0.8) H 08/31/20 08:23 Eos # (Auto) 0.0 K/mm3 (0.0-0.4) 08/31/20 08:23 Baso # (Auto) 0.0 K/mm3 (0.0-0.1) 08/31/20 08:23 Add Manual Diff Complete 08/30/20 20:50 Total Counted 100 08/30/20 20:50 Seg Neutrophils % 77.5 % (40.0-70.0) H 08/31/20 08:23 Seg Neuts % (Manual) 71.0 % (40.0-70.0) H 08/30/20 20:50 Lymphocytes % (Manual) 16.0 % (13.4-35.0) 08/30/20 20:50 Monocytes % (Manual) 13.0 % (0.0-7.3) H 08/30/20 20:50 Nucleated RBC % Not Reportable 08/30/20 20:50 Seg Neutrophils # 5.6 K/mm3 (1.8-7.7) 08/31/20 08:23 Seg Neutrophils # Man 7.3 K/mm3 (1.8-7.7) 08/30/20 20:50 Band Neutrophils # 0.0 K/mm3 08/30/20 20:50 Lymphocytes # (Manual) 1.6 K/mm3 (1.2-5.4) 08/30/20 20:50 Abs React Lymphs (Man) 0.0 K/mm3 08/30/20 20:50 Monocytes # (Manual) 1.3 K/mm3 (0.0-0.8) H 08/30/20 20:50 Eosinophils # (Manual) 0.0 K/mm3 (0.0-0.4) 08/30/20 20:50 Basophils # (Manual) 0.0 K/mm3 (0.0-0.1) 08/30/20 20:50 Metamyelocytes # 0.0 K/mm3 08/30/20 20:50 Myelocytes # 0.0 K/mm3 08/30/20 20:50 Promyelocytes # 0.0 K/mm3 08/30/20 20:50 Blast Cells # 0.0 K/mm3 08/30/20 20:50 WBC Morphology Not Reportable 08/30/20 20:50 Hypersegmented Neuts Not Reportable 08/30/20 20:50 Hyposegmented Neuts Not Reportable 08/30/20 20:50 Hypogranular Neuts Not Reportable 08/30/20 20:50 Smudge Cells Not Reportable 08/30/20 20:50 Toxic Granulation Not Reportable 08/30/20 20:50 Toxic Vacuolation Not Reportable 08/30/20 20:50 Dohle Bodies Not Reportable 08/30/20 20:50 Pelger-Huet Anomaly Not Reportable 08/30/20 20:50 Marcelo Rods Not Reportable 08/30/20 20:50 Platelet Estimate Not Reportable 08/30/20 20:50 Clumped Platelets Not Reportable 08/30/20 20:50 Plt Clumps, EDTA Not Reportable 08/30/20 20:50 Large Platelets Not Reportable 08/30/20 20:50 Giant Platelets Not Reportable 08/30/20 20:50 Platelet Satelliting Not Reportable 08/30/20 20:50 Plt Morphology Comment Not Reportable 08/30/20 20:50 RBC Morphology Normal 08/30/20 20:50 Dimorphic RBCs Not Reportable 08/30/20 20:50 Polychromasia Not Reportable 08/30/20 20:50 Hypochromasia Not Reportable 08/30/20 20:50 Poikilocytosis Not Reportable 08/30/20 20:50 Anisocytosis Not Reportable 08/30/20 20:50 Microcytosis Not Reportable 08/30/20 20:50 Macrocytosis Not Reportable 08/30/20 20:50 Spherocytes Not Reportable 08/30/20 20:50 Pappenheimer Bodies Not Reportable 08/30/20 20:50 Sickle Cells Not Reportable 08/30/20 20:50 Target Cells Not Reportable 08/30/20 20:50 Tear Drop Cells Not Reportable 08/30/20 20:50 Ovalocytes Not Reportable 08/30/20 20:50 Helmet Cells Not Reportable 08/30/20 20:50 Bacon-[place] Bodies Not Reportable 08/30/20 20:50 [place] Rings Not Reportable 08/30/20 20:50 [place] Cells Not Reportable 08/30/20 20:50 Bite Cells Not Reportable 08/30/20 20:50 Crenated Cell Not Reportable 08/30/20 20:50 Elliptocytes Not Reportable 08/30/20 20:50 Acanthocytes (Spur) Not Reportable 08/30/20 20:50 Rouleaux Not Reportable 08/30/20 20:50 Hemoglobin C Crystals Not Reportable 08/30/20 20:50 Schistocytes Not Reportable 08/30/20 20:50 Malaria parasites Not Reportable 08/30/20 20:50 Raymundo Bodies Not Reportable 08/30/20 20:50 Hem Pathologist Commnt No 08/30/20 20:50 D-Dimer 393.96 ng/mlDDU (0-234) H 09/01/20 06:45 Sodium 139 mmol/L (137-145) 09/01/20 06:45 Potassium 4.1 mmol/L (3.6-5.0) 09/01/20 06:45 Chloride 98.9 mmol/L (98-107) 09/01/20 06:45 Carbon Dioxide 27 mmol/L (22-30) 09/01/20 06:45 Anion Gap 17 mmol/L 09/01/20 06:45 BUN 20 mg/dL (9-20) 09/01/20 06:45 Creatinine 0.9 mg/dL (0.8-1.3) 09/01/20 06:45 Estimated GFR > 60 ml/min 09/01/20 06:45 BUN/Creatinine Ratio 22 % 09/01/20 06:45 Glucose 100 mg/dL (75-100) 09/01/20 06:45 Hemoglobin A1c 4.7 % (4-6) 08/31/20 01:00 Calcium 8.8 mg/dL (8.4-10.2) 09/01/20 06:45 Ferritin 5298.0 ng/mL (30.0-300.0) H 09/01/20 06:45 Total Bilirubin 1.60 mg/dL (0.1-1.2) H 09/01/20 06:45 AST 161 units/L (5-40) H 09/01/20 06:45 ALT 138 units/L (7-56) H 09/01/20 06:45 Alkaline Phosphatase 124 units/L (35-129) 09/01/20 06:45 Lactate Dehydrogenase 874 units/L (91-180) H 09/01/20 06:45 C-Reactive Protein 11.00 mg/dL (0.00-1.30) H 08/31/20 01:00 Total Protein 7.3 g/dL (6.3-8.2) 09/01/20 06:45 Albumin 3.7 g/dL (3.9-5) L 09/01/20 06:45 Albumin/Globulin Ratio 1.0 % 09/01/20 06:45 Procalcitonin 0.25 ng/mL (<0.15) 08/30/20 20:50 Coronavirus (PCR) Positive (Negative) A 08/31/20 09:00 Cassidy/IV: Voiding Method Urinal Active Medications - Current Medications Current Medications: Generic Name Dose Route Start Last Admin Trade Name Freq PRN Reason Stop Dose Admin Acetaminophen 650 mg 08/30/20 23:21 Acetaminophen 325 Mg Tab PO Q4H PRN Pain MILD(1-3)/Fever >100.5/TERRELL Al Hydrox/Mg Hydrox/Simethicone 30 ml 08/30/20 23:21 Alum-Mag Hydroxide-Simethicone [id number]/5ml Oral Liqd 30 Ml PO Q4H PRN Indigestion Ascorbic Acid 500 mg 08/31/20 10:00 09/01/20 11:14 Ascorbic Acid 500 Mg Tab PO 500 mg QDAY MIKEY Administration Cholecalciferol 1,000 unit 08/31/20 10:00 09/01/20 11:13 Cholecalciferol (Vit D3) 1000 Unit (25 Mcg) Tab PO 1,000 unit QDAY MIKEY Administration Dexamethasone 6 mg 08/31/20 10:00 09/01/20 11:14 Dexamethasone 4 Mg/Ml Vial IV 6 mg DAILY MIKEY Administration Enoxaparin Sodium 100 mg 08/31/20 22:00 09/01/20 11:14 Enoxaparin 100 Mg/1 Ml Inj SUB-Q 100 mg Q12HR MIKEY Administration Protocol Famotidine 20 mg 08/31/20 10:00 09/01/20 11:13 Famotidine 20 Mg/2 Ml Inj IV 20 mg BID MIKEY Administration Furosemide 20 mg 08/31/20 12:00 09/01/20 11:14 Furosemide 40 Mg/4 Ml Inj IV 09/02/20 10:01 20 mg DAILY MIKEY Administration Azithromycin 500 mg in 250 mls @ 250 mls/hr 08/31/20 10:00 09/01/20 11:15 Zithromax/Ns IV 250 mls/hr Q24HR MIKEY Administration Ceftriaxone Sodium 1 gm in 50 mls @ 100 mls/hr 08/31/20 10:00 09/01/20 11:14 Rocephin/Ns 1 Gm/50 Ml IV 100 mls/hr Q24HR MIKEY Administration Protocol Sodium Chloride 1,000 mls @ 75 mls/hr 08/30/20 23:30 09/01/20 06:00 Nacl 0.9% 1000 Ml IV 75 mls/hr DIRECT MIKEY Administration REMDESIVIR 200 mg/ Sodium 250 mls @ 500 mls/hr 09/01/20 12:23 Chloride IV 09/01/20 12:52 ONCE ONE Magnesium Hydroxide 30 ml 08/30/20 23:21 Magnesium Hydroxide (Mom) Oral Liqd Udc PO Q4H PRN Constipation Metoclopramide HCl 10 mg 08/30/20 23:21 Metoclopramide 10 Mg/2 Ml Inj IV Q6H PRN Nausea And Vomiting Naloxone HCl 0.1 mg 08/30/20 23:21 Naloxone 0.4 Mg/1 Ml Inj IV Q2MIN PRN Res Rate </= 8 or 02 SAT < 92% Ondansetron HCl 4 mg 08/30/20 23:21 Ondansetron 4 Mg/2 Ml Inj IV Q8H PRN Nausea And Vomiting Oxycodone/Acetaminophen 1 tab 08/30/20 23:21 08/31/20 10:10 Oxycodone /Acetaminophen 5-325mg Tab PO 1 tab Q6H PRN Administration Pain, Moderate (4-6) Senna 8.6 mg 08/30/20 23:21 Sennosides 8.6 Mg Tab PO Q12HR PRN Constipation Sodium Chloride 10 ml 08/31/20 10:00 09/01/20 11:14 Sodium Chloride 0.9% 10 Ml Flush Syringe IV 10 ml BID MIKEY Administration Sodium Chloride 10 ml 08/30/20 23:21 Sodium Chloride 0.9% 10 Ml Flush Syringe IV PRN PRN LINE FLUSH Trazodone HCl 50 mg 08/30/20 23:20 08/31/20 22:51 Trazodone 50 Mg Tab PO 50 mg QHS PRN Administration Insomnia Zinc Sulfate 220 mg 08/31/20 10:00 09/01/20 11:14 Zinc Sulfate 220 Mg Cap PO 220 mg QDAY MIKEY Administration
[2020-09-01] MEDS ORDERED: REMDESIVIR 200 MG in SODIUM CHLORIDE 0.9% 250ML 250 ML IV ONE (14:30)
[2020-09-01] MEDS ORDERED: SODIUM CHLORIDE 0.9% 50 ML IVPB IV ONE (15:00)
[2020-09-01 15:22] LABS: Alanine Aminotransferase 264 units/L (7-56); BUN/Creatinine Ratio 23; Blood Urea Nitrogen 21 mg/dL (9-20); Hemolysis Index 11
[2020-09-01] MEDS ORDERED: SODIUM CHLORIDE 0.9% 50 ML IVPB IV SCH (21:00)
[2020-09-02] MEDS: FAMOTIDINE 20 MG/2 ML INJ IV SCH ×3 (00:44→22:48)
[2020-09-02] MEDS: ENOXAPARIN 100 MG/1 ML INJ SUB-Q SCH ×3 (00:44→22:48)
[2020-09-02 08:19] LABS: Alanine Aminotransferase 270 units/L (7-56); Albumin 3.2 g/dL (3.9-5); BUN/Creatinine Ratio 22; Blood Urea Nitrogen 20 mg/dL (9-20); Calcium 8.2 mg/dL (8.4-10.2); Hemolysis Index 4
[2020-09-02] MEDS ORDERED: POTASSIUM CHLORIDE ER 20 MEQ TAB PO NR (09:00)
--- NOTE | 2020-09-02 10:58 | Consultation ---
History of Present Illness Consult date: 09/02/20 Requesting physician: CHEL AGOSTO Reason for consult: hypoxemia, other (COVID) History of present illness: 49 y/o male admitted several days ago with acute respiratory failure secondary to COVID 19. Past History Past Medical History: denies: hyperthyroidism, hypertension, hyperlipidemia Past Surgical History: No surgical history Social history: lives with family, alcohol abuse (marijuana use) Family history: hypertension (father diet of emphesema) Medications and Allergies Allergies Allergy/AdvReac Type Severity Reaction Status Date / Time No Known Allergies Allergy Unverified 08/30/20 16:57 Home Medications Medication Instructions Recorded Confirmed Last Taken Type No Known Home Medications [No 09/02/20 09/02/20 Unknown History Reported Home Medications] Active Meds: Active Medications Acetaminophen (Acetaminophen 325 Mg Tab) 650 mg PO Q4H PRN PRN Reason: Pain MILD(1-3)/Fever >100.5/TERRELL Al Hydrox/Mg Hydrox/Simethicone (Alum-Mag Hydroxide-Simethicone [phone]/5ml Oral Liqd 30 Ml) 30 ml PO Q4H PRN PRN Reason: Indigestion Ascorbic Acid (Ascorbic Acid 500 Mg Tab) 500 mg PO QDAY [facility] Last Admin: 09/01/20 11:14 Dose: 500 mg Documented by: Cholecalciferol (Cholecalciferol (Vit D3) 1000 Unit (25 Mcg) Tab) 1,000 unit PO QDAY [facility] Last Admin: 09/01/20 11:13 Dose: 1,000 unit Documented by: Dexamethasone (Dexamethasone 4 Mg/Ml Vial) 6 mg IV DAILY [facility] Last Admin: 09/01/20 11:14 Dose: 6 mg Documented by: Enoxaparin Sodium (Enoxaparin 100 Mg/1 Ml Inj) 100 mg SUB-Q Q12HR [facility]; Protocol Last Admin: 09/02/20 00:44 Dose: Not Given Documented by: Famotidine (Famotidine 20 Mg/2 Ml Inj) 20 mg IV BID [facility] Last Admin: 09/02/20 00:44 Dose: Not Given Documented by: Azithromycin (Zithromax/Ns) 500 mg in 250 mls @ 250 mls/hr IV Q24HR [facility] Stop: 09/03/20 10:59 Last Infusion: 09/01/20 15:28 Dose: Infused Documented by: Ceftriaxone Sodium (Rocephin/Ns 1 Gm/50 Ml) 1 gm in 50 mls @ 100 mls/hr IV Q24HR [facility]; Protocol Last Infusion: 09/01/20 15:28 Dose: Infused Documented by: Sodium Chloride (Nacl 0.9% 1000 Ml) 1,000 mls @ 75 mls/hr IV DIRECT [facility] Last Admin: 09/01/20 20:25 Dose: 75 mls/hr Documented by: Magnesium Hydroxide (Magnesium Hydroxide (Mom) Oral Liqd Udc) 30 ml PO Q4H PRN PRN Reason: Constipation Metoclopramide HCl (Metoclopramide 10 Mg/2 Ml Inj) 10 mg IV Q6H PRN PRN Reason: Nausea And Vomiting Naloxone HCl (Naloxone 0.4 Mg/1 Ml Inj) 0.1 mg IV Q2MIN PRN PRN Reason: Res Rate </= 8 or 02 SAT < 92% Ondansetron HCl (Ondansetron 4 Mg/2 Ml Inj) 4 mg IV Q8H PRN PRN Reason: Nausea And Vomiting Oxycodone/Acetaminophen (Oxycodone /Acetaminophen 5-325mg Tab) 1 tab PO Q6H PRN PRN Reason: Pain, Moderate (4-6) Last Admin: 08/31/20 10:10 Dose: 1 tab Documented by: Potassium Chloride (Potassium Chloride Er 20 Meq Tab) 40 meq PO ONCE@0900 NR Stop: 09/02/20 12:00 Senna (Sennosides 8.6 Mg Tab) 8.6 mg PO Q12HR PRN PRN Reason: Constipation Sodium Chloride (Sodium Chloride 0.9% 10 Ml Flush Syringe) 10 ml IV BID [facility] Last Admin: 09/02/20 00:44 Dose: Not Given Documented by: Sodium Chloride (Sodium Chloride 0.9% 10 Ml Flush Syringe) 10 ml IV PRN PRN PRN Reason: LINE FLUSH Trazodone HCl (Trazodone 50 Mg Tab) 50 mg PO QHS PRN PRN Reason: Insomnia Last Admin: 08/31/20 22:51 Dose: 50 mg Documented by: Zinc Sulfate (Zinc Sulfate 220 Mg Cap) 220 mg PO QDAY [facility] Last Admin: 09/01/20 11:14 Dose: 220 mg Documented by: Review of Systems All systems: negative Physical Examination Vital signs: Vital Signs Pulse BP Pulse Ox 72 124/76 90 08/30/20 16:28 08/30/20 16:28 08/30/20 16:28 Results - Laboratory Findings CBC and BMP: 09/01/20 06:45 09/02/20 07:25 PT/INR, D-dimer D-Dimer 393.96 ng/mlDDU (0-234) H 09/01/20 06:45 Abnormal lab findings: Abnormal Labs 08/30/20 08/30/20 08/30/20 20:50 20:50 20:50 RBC Hgb Hct MCV MCH MCHC RDW Lymph % (Auto) Grand % (Auto) Lymph # (Auto) Grand # (Auto) Seg Neutrophils % Seg Neuts % (Manual) Monocytes % (Manual) Monocytes # (Manual) D-Dimer 612.11 H Sodium Potassium Chloride BUN Glucose 109 H Calcium Ferritin 6614.0 H Total Bilirubin AST ALT Alkaline Phosphatase Lactate Dehydrogenase 1104 H C-Reactive Protein 12.20 H Albumin Coronavirus (PCR) 08/30/20 08/30/20 08/31/20 20:50 20:50 01:00 RBC 3.56 L Hgb 11.6 L Hct 34.2 L MCV 96 H MCH 33 H MCHC RDW 13.1 L Lymph % (Auto) Grand % (Auto) Lymph # (Auto) Grand # (Auto) Seg Neutrophils % Seg Neuts % (Manual) 71.0 H Monocytes % (Manual) 13.0 H Monocytes # (Manual) 1.3 H D-Dimer Sodium 133 L Potassium Chloride 93.4 L BUN Glucose 111 H 117 H Calcium Ferritin Total Bilirubin 2.30 H AST 194 H ALT 106 H Alkaline Phosphatase Lactate Dehydrogenase 1070 H C-Reactive Protein 11.00 H Albumin Coronavirus (PCR) 08/31/20 08/31/20 08/31/20 01:00 08:23 08:23 RBC 3.36 L Hgb 10.8 L Hct 31.8 L MCV 95 H MCH MCHC RDW 12.7 L Lymph % (Auto) 8.1 L Grand % (Auto) 14.1 H Lymph # (Auto) 0.6 L Grand # (Auto) 1.0 H Seg Neutrophils % 77.5 H Seg Neuts % (Manual) Monocytes % (Manual) Monocytes # (Manual) D-Dimer Sodium Potassium Chloride 97.8 L BUN Glucose 136 H Calcium Ferritin 5794.0 H Total Bilirubin 1.80 H AST 122 H ALT 93 H Alkaline Phosphatase Lactate Dehydrogenase C-Reactive Protein Albumin 3.7 L Coronavirus (PCR) 08/31/20 09/01/20 09/01/20 09:00 06:45 06:45 RBC 3.24 L Hgb 10.8 L Hct 31.2 L MCV 96 H MCH 33 H MCHC 35 H RDW 12.7 L Lymph % (Auto) Grand % (Auto) Lymph # (Auto) Grand # (Auto) Seg Neutrophils % Seg Neuts % (Manual) Monocytes % (Manual) Monocytes # (Manual) D-Dimer Sodium Potassium Chloride BUN Glucose Calcium Ferritin Total Bilirubin 1.60 H AST 161 H ALT 138 H Alkaline Phosphatase Lactate Dehydrogenase 874 H C-Reactive Protein Albumin 3.7 L Coronavirus (PCR) Positive A 09/01/20 09/01/20 09/01/20 06:45 06:45 14:22 RBC Hgb Hct MCV MCH MCHC RDW Lymph % (Auto) Grand % (Auto) Lymph # (Auto) Grand # (Auto) Seg Neutrophils % Seg Neuts % (Manual) Monocytes % (Manual) Monocytes # (Manual) D-Dimer 393.96 H Sodium Potassium Chloride 97.7 L BUN 21 H Glucose 127 H Calcium Ferritin 5298.0 H Total Bilirubin 1.90 H AST 501 H ALT 264 H Alkaline Phosphatase 155 H Lactate Dehydrogenase C-Reactive Protein Albumin Coronavirus (PCR) 09/02/20 07:25 RBC Hgb Hct MCV MCH MCHC RDW Lymph % (Auto) Grand % (Auto) Lymph # (Auto) Grand # (Auto) Seg Neutrophils % Seg Neuts % (Manual) Monocytes % (Manual) Monocytes # (Manual) D-Dimer Sodium 136 L Potassium 3.5 L Chloride BUN Glucose Calcium 8.2 L Ferritin Total Bilirubin AST 219 H ALT 270 H Alkaline Phosphatase 140 H Lactate Dehydrogenase C-Reactive Protein Albumin 3.2 L Coronavirus (PCR) - Diagnostic Findings Chest x-ray: image reviewed CT scan - chest: image reviewed Assessment and Plan 49 y/o obese male with acute respiratory failure secondary to COVID 19 pneumonia 1. Prone as tolerated during the day and sleep prone at night if possible. 2. Agree with steroids and Remdesivir. Based on ID recs from another patient should be a candidate for Actemra given CRP of 11 3. Agree with PRN lasix 4. Maintain sats >88% 5. Guarded prognosis.
[2020-09-02] MEDS: cefTRIAXone/NS 1 GM/50 ML 1 GM/50 ML BAG IV SCH (11:08)
[2020-09-02] MEDS: CHOLECALCIFEROL (VIT D3) 1000 UNIT (25 mcg) TAB PO SCH (11:14)
[2020-09-02] MEDS: ZINC SULFATE 220 MG CAP PO SCH (11:14)
[2020-09-02] MEDS: ASCORBIC ACID 500 MG TAB PO SCH (11:15)
[2020-09-02] MEDS: FUROSEMIDE 40 MG/4 ML INJ IV SCH (11:15)
[2020-09-02] MEDS: AZITHROMYCIN/NS 500 MG/250 ML 500 MG/250 ML BAG IV SCH (11:16)
[2020-09-02] MEDS: dexAMETHasone 4 MG/ML VIAL IV SCH (11:16)
[2020-09-02] MEDS: SODIUM CHLORIDE 0.9% 1000 ML 1,000 ML IV SCH ×2 (11:17→22:48)
--- NOTE | 2020-09-02 11:26 | Progress Note ---
Assessment and Plan Assessment and plan: This is ED work-up a 49-year-old male that presents emergency room with complaints of difficulty breathing and respiratory symptoms. Patient found to have Covid pneumonia. Patient is hypoxic. Patient is currently on oxygen therapy. Patient has not had the COVID-19 vaccine. WBC 10.3, hemoglobin 11.6, platelets 292, D-dimer 612.11, sodium 133, potassium 4.3, creatinine 1.0 serum glucose 111 ferritin six 614.0, AST 192, ALT 106, lactate dehydrogenase 1104, CEA reactive protein 12.2. Patient seen at bedside in ED. Patient is on oxygen by nasal cannula. Patient said he was tested positive for Covid 19. He reported a history of shortness of breath for about 1 week that made him go and check for Covid. I reviewed patient medication records vital signs and lab values. Will start patient on Covid protocol including airborne and contact isolation. Chest x-ray shows peribronchial cuffing. 08/31: Patient on 4 L of oxygen await ID for remdesivir ordered. Continue steroids at this time per protocol. Will change to full dose anticoagulation although CTA is negative for PE. Will monitor inflammatory markers. 15 minutes counseling given to the patient on tobacco use and marijuana use he verbalized understanding. We will give 20 of Lasix x3 days due to borderline low blood pressure. And continue to monitor for improvement. 09/01: Continue steroid therapy for COVID-19. LFTs elevated likely secondary to the Covid virus will defer remdesivir to ID. Wean oxygen as tolerated. Conditi on remains guarded. 09/02: Patient would like to be discharged today but I did explain his hypoxia a nd the critical guarded prognostic nature considering his obesity and overall medical condition. He understands and verbalized understanding. We will do a home O2 evaluation today. Awaiting ID recommendation if patient will benefit from Actemera. Anticipate discharge in a.m. LFT Improving. We will also replace potassium (1) COVID-19 Current Visit: Yes Status: Acute Plan to address problem: Continue isolation airborne Continue systemic steroid and empiric antibiotic Encourage patient prone position and the use of incentive spirometer Mannitol inflammatory markers Patient has elevated D-dimer we will check CT of the chest rule out PE ID consult. Follow-up with plan of care. Ascorbic acid, zinc sulfate, selenium, and vitamin D supplements (2) Acute respiratory failure with hypoxia Current Visit: Yes Status: Acute Plan to address problem: Continue bronchodilator and oxygen supplement ABG and pr internship consult (3) Marijuana use Current Visit: Yes Status: Acute Plan to address problem: Discussed cessation (4) mild hypertensive (5) Hypokalemia (6) Elevated LFTs (6) DVT prophylaxis Current Visit: Yes Status: Acute Plan to address problem: Lovenox History Interval history: Patient seen and examined this morning is on 4 L of oxygen as still had p ersistent hypoxia yesterday. Hospitalist Physical - Physical exam Narrative exam: VITAL SIGNS: Reviewed. GENERAL: The patient appears normally developed, sitting up in the chair, obese vital signs as documented. HEAD: No signs of head trauma. EYES: Pupils are equal. Extraocular motions intact. EARS: Hearing grossly intact. MOUTH: Oropharynx is normal. NECK: No adenopathy, no JVD. CHEST: Chest with diminished breath sounds bilaterally. No wheezes, rales, or rhonchi. CARDIAC: Mildly tachycardic otherwise regular rhythm. S1 and S2, without murmurs, gallops, or rubs. VASCULAR: No Edema. Peripheral pulses normal and equal in all extremities. ABDOMEN: Soft, non tender and non distended. No rebound or guarding, and no masses palpated. Bowel Sounds normal. MUSCULOSKELETAL: Good range of motion of all major joints. Extremities without clubbing, cyanosis or edema. NEUROLOGIC EXAM: Alert and oriented x 3 No focal sensory or strength deficits. Speech normal. Follows commands. PSYCHIATRIC: Mood normal. SKIN: detail exam as documented in skin assessment - Constitutional Vitals: Temp Pulse Resp BP Pulse Ox 98.0 F 60 20 115/63 100 09/01/20 23:08 09/01/20 23:08 09/01/20 23:08 09/01/20 23:08 09/01/20 23:08 General appearance: Present: mild distress, well-nourished Results - Labs CBC & Chem 7: 09/01/20 06:45 09/02/20 07:25 Labs: Laboratory Last Values WBC 10.6 K/mm3 (4.5-11.0) 09/01/20 06:45 RBC 3.24 M/mm3 (3.65-5.03) L 09/01/20 06:45 Hgb 10.8 gm/dl (11.8-15.2) L 09/01/20 06:45 Hct 31.2 % (35.5-45.6) L 09/01/20 06:45 MCV 96 fl (84-94) H 09/01/20 06:45 MCH 33 pg (28-32) H 09/01/20 06:45 MCHC 35 % (32-34) H 09/01/20 06:45 RDW 12.7 % (13.2-15.2) L 09/01/20 06:45 Plt Count 413 K/mm3 (140-440) 09/01/20 06:45 Lymph % (Auto) 8.1 % (13.4-35.0) L 08/31/20 08:23 Gregory % (Auto) 14.1 % (0.0-7.3) H 08/31/20 08:23 Eos % (Auto) 0.0 % (0.0-4.3) 08/31/20 08:23 Baso % (Auto) 0.3 % (0.0-1.8) 08/31/20 08:23 Lymph # (Auto) 0.6 K/mm3 (1.2-5.4) L 08/31/20 08:23 Gregory # (Auto) 1.0 K/mm3 (0.0-0.8) H 08/31/20 08:23 Eos # (Auto) 0.0 K/mm3 (0.0-0.4) 08/31/20 08:23 Baso # (Auto) 0.0 K/mm3 (0.0-0.1) 08/31/20 08:23 Add Manual Diff Complete 08/30/20 20:50 Total Counted 100 08/30/20 20:50 Seg Neutrophils % 77.5 % (40.0-70.0) H 08/31/20 08:23 Seg Neuts % (Manual) 71.0 % (40.0-70.0) H 08/30/20 20:50 Lymphocytes % (Manual) 16.0 % (13.4-35.0) 08/30/20 20:50 Monocytes % (Manual) 13.0 % (0.0-7.3) H 08/30/20 20:50 Nucleated RBC % Not Reportable 08/30/20 20:50 Seg Neutrophils # 5.6 K/mm3 (1.8-7.7) 08/31/20 08:23 Seg Neutrophils # Man 7.3 K/mm3 (1.8-7.7) 08/30/20 20:50 Band Neutrophils # 0.0 K/mm3 08/30/20 20:50 Lymphocytes # (Manual) 1.6 K/mm3 (1.2-5.4) 08/30/20 20:50 Abs React Lymphs (Man) 0.0 K/mm3 08/30/20 20:50 Monocytes # (Manual) 1.3 K/mm3 (0.0-0.8) H 08/30/20 20:50 Eosinophils # (Manual) 0.0 K/mm3 (0.0-0.4) 08/30/20 20:50 Basophils # (Manual) 0.0 K/mm3 (0.0-0.1) 08/30/20 20:50 Metamyelocytes # 0.0 K/mm3 08/30/20 20:50 Myelocytes # 0.0 K/mm3 08/30/20 20:50 Promyelocytes # 0.0 K/mm3 08/30/20 20:50 Blast Cells # 0.0 K/mm3 08/30/20 20:50 WBC Morphology Not Reportable 08/30/20 20:50 Hypersegmented Neuts Not Reportable 08/30/20 20:50 Hyposegmented Neuts Not Reportable 08/30/20 20:50 Hypogranular Neuts Not Reportable 08/30/20 20:50 Smudge Cells Not Reportable 08/30/20 20:50 Toxic Granulation Not Reportable 08/30/20 20:50 Toxic Vacuolation Not Reportable 08/30/20 20:50 Dohle Bodies Not Reportable 08/30/20 20:50 Pelger-Huet Anomaly Not Reportable 08/30/20 20:50 Marcelo Rods Not Reportable 08/30/20 20:50 Platelet Estimate Not Reportable 08/30/20 20:50 Clumped Platelets Not Reportable 08/30/20 20:50 Plt Clumps, EDTA Not Reportable 08/30/20 20:50 Large Platelets Not Reportable 08/30/20 20:50 Giant Platelets Not Reportable 08/30/20 20:50 Platelet Satelliting Not Reportable 08/30/20 20:50 Plt Morphology Comment Not Reportable 08/30/20 20:50 RBC Morphology Normal 08/30/20 20:50 Dimorphic RBCs Not Reportable 08/30/20 20:50 Polychromasia Not Reportable 08/30/20 20:50 Hypochromasia Not Reportable 08/30/20 20:50 Poikilocytosis Not Reportable 08/30/20 20:50 Anisocytosis Not Reportable 08/30/20 20:50 Microcytosis Not Reportable 08/30/20 20:50 Macrocytosis Not Reportable 08/30/20 20:50 Spherocytes Not Reportable 08/30/20 20:50 Pappenheimer Bodies Not Reportable 08/30/20 20:50 Sickle Cells Not Reportable 08/30/20 20:50 Target Cells Not Reportable 08/30/20 20:50 Tear Drop Cells Not Reportable 08/30/20 20:50 Ovalocytes Not Reportable 08/30/20 20:50 Helmet Cells Not Reportable 08/30/20 20:50 [place] Bodies Not Reportable 08/30/20 20:50 [place] Rings Not Reportable 08/30/20 20:50 Dagmar Cells Not Reportable 08/30/20 20:50 Bite Cells Not Reportable 08/30/20 20:50 Crenated Cell Not Reportable 08/30/20 20:50 Elliptocytes Not Reportable 08/30/20 20:50 Acanthocytes (Spur) Not Reportable 08/30/20 20:50 Rouleaux Not Reportable 08/30/20 20:50 Hemoglobin C Crystals Not Reportable 08/30/20 20:50 Schistocytes Not Reportable 08/30/20 20:50 Malaria parasites Not Reportable 08/30/20 20:50 Raymundo Bodies Not Reportable 08/30/20 20:50 Hem Pathologist Commnt No 08/30/20 20:50 D-Dimer 393.96 ng/mlDDU (0-234) H 09/01/20 06:45 Sodium 136 mmol/L (137-145) L 09/02/20 07:25 Potassium 3.5 mmol/L (3.6-5.0) L 09/02/20 07:25 Chloride 99.7 mmol/L (98-107) 09/02/20 07:25 Carbon Dioxide 25 mmol/L (22-30) 09/02/20 07:25 Anion Gap 15 mmol/L 09/02/20 07:25 BUN 20 mg/dL (9-20) 09/02/20 07:25 Creatinine 0.9 mg/dL (0.8-1.3) 09/02/20 07:25 Estimated GFR > 60 ml/min 09/02/20 07:25 BUN/Creatinine Ratio 22 % 09/02/20 07:25 Glucose 86 mg/dL (75-100) 09/02/20 07:25 Hemoglobin A1c 4.7 % (4-6) 08/31/20 01:00 Calcium 8.2 mg/dL (8.4-10.2) L 09/02/20 07:25 Ferritin 5298.0 ng/mL (30.0-300.0) H 09/01/20 06:45 Total Bilirubin 1.10 mg/dL (0.1-1.2) 09/02/20 07:25 AST 219 units/L (5-40) H 09/02/20 07:25 ALT 270 units/L (7-56) H 09/02/20 07:25 Alkaline Phosphatase 140 units/L (35-129) H 09/02/20 07:25 Lactate Dehydrogenase 874 units/L (91-180) H 09/01/20 06:45 C-Reactive Protein 11.00 mg/dL (0.00-1.30) H 08/31/20 01:00 Total Protein 6.3 g/dL (6.3-8.2) 09/02/20 07:25 Albumin 3.2 g/dL (3.9-5) L 09/02/20 07:25 Albumin/Globulin Ratio 1.0 % 09/02/20 07:25 Procalcitonin 0.25 ng/mL (<0.15) 08/30/20 20:50 Coronavirus (PCR) Positive (Negative) A 08/31/20 09:00 Cassidy/IV: Voiding Method Urinal Active Medications - Current Medications Current Medications: Generic Name Dose Route Start Last Admin Trade Name Freq PRN Reason Stop Dose Admin Acetaminophen 650 mg 08/30/20 23:21 Acetaminophen 325 Mg Tab PO Q4H PRN Pain MILD(1-3)/Fever >100.5/TERRELL Al Hydrox/Mg Hydrox/Simethicone 30 ml 08/30/20 23:21 Alum-Mag Hydroxide-Simethicone [phone]/5ml Oral Liqd 30 Ml PO Q4H PRN Indigestion Ascorbic Acid 500 mg 08/31/20 10:00 09/02/20 11:15 Ascorbic Acid 500 Mg Tab PO 500 mg QDAY [facility] Administration Cholecalciferol 1,000 unit 08/31/20 10:00 09/02/20 11:14 Cholecalciferol (Vit D3) 1000 Unit (25 Mcg) Tab PO 1,000 unit QDAY [facility] Administration Dexamethasone 6 mg 08/31/20 10:00 09/02/20 11:16 Dexamethasone 4 Mg/Ml Vial IV 6 mg DAILY [facility] Administration Enoxaparin Sodium 100 mg 08/31/20 22:00 09/02/20 11:14 Enoxaparin 100 Mg/1 Ml Inj SUB-Q 100 mg Q12HR [facility] Administration Protocol Famotidine 20 mg 08/31/20 10:00 09/02/20 11:16 Famotidine 20 Mg/2 Ml Inj IV 20 mg BID [facility] Administration Azithromycin 500 mg in 250 mls @ 250 mls/hr 08/31/20 10:00 09/02/20 11:16 Zithromax/Ns IV 09/03/20 10:59 2,520 mls/hr Q24HR [facility] Administration Ceftriaxone Sodium 1 gm in 50 mls @ 100 mls/hr 08/31/20 10:00 09/02/20 11:08 Rocephin/Ns 1 Gm/50 Ml IV 100 mls/hr Q24HR [facility] Administration Protocol Sodium Chloride 1,000 mls @ 75 mls/hr 08/30/20 23:30 09/01/20 20:25 Nacl 0.9% 1000 Ml IV 75 mls/hr DIRECT [facility] Administration Magnesium Hydroxide 30 ml 08/30/20 23:21 Magnesium Hydroxide (Mom) Oral Liqd Udc PO Q4H PRN Constipation Metoclopramide HCl 10 mg 08/30/20 23:21 Metoclopramide 10 Mg/2 Ml Inj IV Q6H PRN Nausea And Vomiting Naloxone HCl 0.1 mg 08/30/20 23:21 Naloxone 0.4 Mg/1 Ml Inj IV Q2MIN PRN Res Rate </= 8 or 02 SAT < 92% Ondansetron HCl 4 mg 08/30/20 23:21 Ondansetron 4 Mg/2 Ml Inj IV Q8H PRN Nausea And Vomiting Oxycodone/Acetaminophen 1 tab 08/30/20 23:21 08/31/20 10:10 Oxycodone /Acetaminophen 5-325mg Tab PO 1 tab Q6H PRN Administration Pain, Moderate (4-6) Potassium Chloride 40 meq 09/02/20 09:00 09/02/20 11:16 Potassium Chloride Er 20 Meq Tab PO 09/02/20 12:00 40 meq ONCE@0900 NR Administration Senna 8.6 mg 08/30/20 23:21 Sennosides 8.6 Mg Tab PO Q12HR PRN Constipation Sodium Chloride 10 ml 08/31/20 10:00 09/02/20 11:17 Sodium Chloride 0.9% 10 Ml Flush Syringe IV 10 ml BID [facility] Administration Sodium Chloride 10 ml 08/30/20 23:21 Sodium Chloride 0.9% 10 Ml Flush Syringe IV PRN PRN LINE FLUSH Trazodone HCl 50 mg 08/30/20 23:20 08/31/20 22:51 Trazodone 50 Mg Tab PO 50 mg QHS PRN Administration Insomnia Zinc Sulfate 220 mg 08/31/20 10:00 09/02/20 11:14 Zinc Sulfate 220 Mg Cap PO 220 mg QDAY [facility] Administration
--- NOTE | 2020-09-02 14:06 | Consultation ---
History of Present Illness - Reason for Consult Consult date: 09/02/20 COVID Requesting physician: ESTEBAN ISAAC - History of Present Illness The patient is a 49-year-old male with hypertension, hyperlipidemia, admitted to the hospital on 08/30/2020 with shortness of breath. Tested positive for COVID- 19. Labs also revealed transaminitis, ferritin 5.2K. Patient is on supplemental oxygen at 4 L/min. Infectious diseases was consulted for additio nal evaluation. Procalcitonin 0.25 Review of Systems: reviewed in the chart, unable to obtain, minimize risk of transmission Past History Past Medical History: denies: hyperthyroidism, hypertension, hyperlipidemia Past Surgical History: No surgical history Social history: lives with family, alcohol abuse (marijuana use) Family history: hypertension (father diet of juli) Medications and Allergies Allergies Allergy/AdvReac Type Severity Reaction Status Date / Time No Known Allergies Allergy Unverified 08/30/20 16:57 Home Medications Medication Instructions Recorded Confirmed Last Taken Type No Known Home Medications [No 09/02/20 09/02/20 Unknown History Reported Home Medications] Active Meds: Active Medications Acetaminophen (Acetaminophen 325 Mg Tab) 650 mg PO Q4H PRN PRN Reason: Pain MILD(1-3)/Fever >100.5/TERRELL Al Hydrox/Mg Hydrox/Simethicone (Alum-Mag Hydroxide-Simethicone [phone]/5ml Oral Liqd 30 Ml) 30 ml PO Q4H PRN PRN Reason: Indigestion Ascorbic Acid (Ascorbic Acid 500 Mg Tab) 500 mg PO QDAY [facility] Last Admin: 09/02/20 11:15 Dose: 500 mg Documented by: Cholecalciferol (Cholecalciferol (Vit D3) 1000 Unit (25 Mcg) Tab) 1,000 unit PO QDAY [facility] Last Admin: 09/02/20 11:14 Dose: 1,000 unit Documented by: Dexamethasone (Dexamethasone 4 Mg/Ml Vial) 6 mg IV DAILY [facility] Last Admin: 09/02/20 11:16 Dose: 6 mg Documented by: Enoxaparin Sodium (Enoxaparin 100 Mg/1 Ml Inj) 100 mg SUB-Q Q12HR [facility]; Protocol Last Admin: 09/02/20 11:14 Dose: 100 mg Documented by: Famotidine (Famotidine 20 Mg/2 Ml Inj) 20 mg IV BID [facility] Last Admin: 09/02/20 11:16 Dose: 20 mg Documented by: Sodium Chloride (Nacl 0.9% 1000 Ml) 1,000 mls @ 75 mls/hr IV DIRECT [facility] Last Admin: 09/01/20 20:25 Dose: 75 mls/hr Documented by: REMDESIVIR 200 mg/ Sodium (Chloride) 250 mls @ 500 mls/hr IV ONCE ONE Stop: 09/02/20 14:32 REMDESIVIR 100 mg/ Sodium (Chloride) 250 mls @ 500 mls/hr IV Q24HR@2100 [facility] Stop: 09/06/20 21:29 Magnesium Hydroxide (Magnesium Hydroxide (Mom) Oral Liqd Udc) 30 ml PO Q4H PRN PRN Reason: Constipation Metoclopramide HCl (Metoclopramide 10 Mg/2 Ml Inj) 10 mg IV Q6H PRN PRN Reason: Nausea And Vomiting Naloxone HCl (Naloxone 0.4 Mg/1 Ml Inj) 0.1 mg IV Q2MIN PRN PRN Reason: Res Rate </= 8 or 02 SAT < 92% Ondansetron HCl (Ondansetron 4 Mg/2 Ml Inj) 4 mg IV Q8H PRN PRN Reason: Nausea And Vomiting Oxycodone/Acetaminophen (Oxycodone /Acetaminophen 5-325mg Tab) 1 tab PO Q6H PRN PRN Reason: Pain, Moderate (4-6) Last Admin: 08/31/20 10:10 Dose: 1 tab Documented by: Senna (Sennosides 8.6 Mg Tab) 8.6 mg PO Q12HR PRN PRN Reason: Constipation Sodium Chloride (Sodium Chloride 0.9% 10 Ml Flush Syringe) 10 ml IV BID [facility] Last Admin: 09/02/20 11:17 Dose: 10 ml Documented by: Sodium Chloride (Sodium Chloride 0.9% 10 Ml Flush Syringe) 10 ml IV PRN PRN PRN Reason: LINE FLUSH Sodium Chloride (Sodium Chloride 0.9% 50 Ml Ivpb) 50 ml IV Q24HR@2100 [facility] Stop: 09/06/20 21:01 Trazodone HCl (Trazodone 50 Mg Tab) 50 mg PO QHS PRN PRN Reason: Insomnia Last Admin: 08/31/20 22:51 Dose: 50 mg Documented by: Zinc Sulfate (Zinc Sulfate 220 Mg Cap) 220 mg PO QDAY [facility] Last Admin: 09/02/20 11:14 Dose: 220 mg Documented by: Physical Examination - Physical Exam Narrative exam: Physical Exam (reviewed in chart to minimize risk of transmission) Constitutional: deferred Head, Ears, Nose: deferred Eyes: deferred Neck: deferred Oral: deferred Cardiovascular: deferred Respiratory: deferred GI: deferred Musculoskeletal: deferred Skin: deferred Hem/Lymphatic: deferred Psych: deferred Neurological: deferred - Constitutional Vitals: Vital Signs Temp Pulse Resp BP Pulse Ox 98.0 F 60 20 115/63 100 09/01/20 23:08 09/01/20 23:08 09/01/20 23:08 09/01/20 23:08 09/01/20 23:08 Temperature -Last 24 Hours Temperature 98.0 F Temperature 98.0 F Results - Labs CBC & Chem 7: 09/01/20 06:45 09/02/20 07:25 Labs: Abnormal lab results 09/01/20 09/02/20 Range/Units 14:22 07:25 Sodium 136 L (137-145) mmol/L Potassium 3.5 L (3.6-5.0) mmol/L Chloride 97.7 L (98-107) mmol/L BUN 21 H (9-20) mg/dL Glucose 127 H (75-100) mg/dL Calcium 8.2 L (8.4-10.2) mg/dL Total Bilirubin 1.90 H (0.1-1.2) mg/dL AST 501 H 219 H (5-40) units/L ALT 264 H 270 H (7-56) units/L Alkaline Phosphatase 155 H 140 H (35-129) units/L Albumin 3.2 L (3.9-5) g/dL - Imaging and Cardiology Chest x-ray: report reviewed, image reviewed (patchy opacities) CT scan - chest: report reviewed, image reviewed (patchy opacities) Assessment and Plan Cultures: SARS CoV2 PCR: Positive A/P: 49-year-old male with hypertension, hyperlipidemia, admitted to the hospital on 08/30/2020 with shortness of breath. Tested positive for COVID-19: #Bilateral pneumonia: Secondary to COVID-19 #Acute hypoxic respiratory failure: On nasal cannula #Transaminitis: Likely secondary to COVID-19 Recs: -IV/PO Dexamethasone 6 mg daily x 10 days -Hepatitis panel ordered -Remdesivir ordered, monitor LFTs, if any worsening, will need to discontinue -Currently, he does not meet hospital criteria for Tocilizumab at this point, if hypoxia worsens, will reevaluate -prophylactic anticoagulation based on d-dimer per hospital protocol -trend ferritin, LDH, d-dimer, CRP every 2-3 days for risk stratification and to assess disease progression -abx stopped Belinda Day MD, FACP [facility] ([facility] O: [phone] F: [phone]
[2020-09-02 18:31] LABS: Alanine Aminotransferase 294 units/L (7-56); BUN/Creatinine Ratio 23; Blood Urea Nitrogen 18 mg/dL (9-20); Hemolysis Index 4
[2020-09-02 18:39] LABS: Albumin < 0.2 g/dL (3.9-5)
[2020-09-02] MEDS ORDERED: SODIUM CHLORIDE 0.9% 50 ML IVPB IV SCH (21:00)
[2020-09-02] MEDS ORDERED: REMDESIVIR 100 MG in SODIUM CHLORIDE 0.9% 250ML 250 ML IV SCH (21:00)
--- NOTE | 2020-09-03 07:40 | Progress Note ---
Assessment and Plan Assessment and plan: This is ED work-up a 49-year-old male that presents emergency room with complaints of difficulty breathing and respiratory symptoms. Patient found to have Covid pneumonia. Patient is hypoxic. Patient is currently on oxygen therapy. Patient has not had the COVID-19 vaccine. WBC 10.3, hemoglobin 11.6, platelets 292, D-dimer 612.11, sodium 133, potassium 4.3, creatinine 1.0 serum glucose 111 ferritin six 614.0, AST 192, ALT 106, lactate dehydrogenase 1104, CEA reactive protein 12.2. Patient seen at bedside in ED. Patient is on oxygen by nasal cannula. Patient said he was tested positive for Covid 19. He reported a history of shortness of breath for about 1 week that made him go and check for Covid. I reviewed patient medication records vital signs and lab values. Will start patient on Covid protocol including airborne and contact isolation. Chest x-ray shows peribronchial cuffing. 08/31: Patient on 4 L of oxygen await ID for remdesivir ordered. Continue steroids at this time per protocol. Will change to full dose anticoagulation although CTA is negative for PE. Will monitor inflammatory markers. 15 minutes counseling given to the patient on tobacco use and marijuana use he verbalized understanding. We will give 20 of Lasix x3 days due to borderline low blood pressure. And continue to monitor for improvement. 09/01: Continue steroid therapy for COVID-19. LFTs elevated likely secondary to the Covid virus will defer remdesivir to ID. Wean oxygen as tolerated. Condit ion remains guarded. 09/03; patient is on remdesivir and Decadron. Will follow LFTs. Mild elevation. Patient is on 2 L of oxygen. Continue current management and wean oxygen as tolerated. Patient can be discharged if patient is off oxygen. Will Do 6-minute walk test. (1) COVID-19 Current Visit: Yes Status: Acute Plan to address problem: Continue isolation airborne Continue systemic steroid and empiric antibiotic Encourage patient prone position and the use of incentive spirometer Mannitol inflammatory markers Patient has elevated D-dimer we will check CT of the chest rule out PE ID consult. Follow-up with plan of care. Ascorbic acid, zinc sulfate, selenium, and vitamin D supplements (2) Acute respiratory failure with hypoxia Current Visit: Yes Status: Acute Plan to address problem: Continue bronchodilator and oxygen supplement ABG and welder manufacture consult (3) Marijuana use Current Visit: Yes Status: Acute Plan to address problem: Discussed cessation (4) mild hypertensive (5) elevated LFTs (6) DVT prophylaxis Current Visit: Yes Status: Acute Plan to address problem: Lovenox History Interval history: Patient was seen and evaluated this morning Patient was on 2 L of oxygen Patient does not have any complaints Hospitalist Physical - Physical exam Narrative exam: Not in cardiopulmonary distress. The patient appeared well nourished and normally developed. Vital signs as documented. Head exam is unremarkable. No scleral icterus . Neck is without jugular venous distension, thyromegaly, or carotid bruits. Lungs are clear to auscultation. Cardiac exam reveals regular rate and Rhythm. Abdominal exam reveals normal bowel sounds, nontender, no organomegaly. Extremities are nonedematous and both femoral and pedal pulses are normal. MARZIPAN MAKER: Alert and oriented 3. No focal weakness. - Constitutional Vitals: Temp Pulse Resp BP Pulse Ox 98.7 F 55 L 16 127/75 97 09/03/20 04:44 09/03/20 04:44 09/03/20 06:02 09/03/20 04:44 09/03/20 04:44 General appearance: Present: mild distress, well-nourished Results - Labs CBC & Chem 7: 09/01/20 06:45 09/03/20 08:03 Labs: Laboratory Last Values WBC 10.6 K/mm3 (4.5-11.0) 09/01/20 06:45 RBC 3.24 M/mm3 (3.65-5.03) L 09/01/20 06:45 Hgb 10.8 gm/dl (11.8-15.2) L 09/01/20 06:45 Hct 31.2 % (35.5-45.6) L 09/01/20 06:45 MCV 96 fl (84-94) H 09/01/20 06:45 MCH 33 pg (28-32) H 09/01/20 06:45 MCHC 35 % (32-34) H 09/01/20 06:45 RDW 12.7 % (13.2-15.2) L 09/01/20 06:45 Plt Count 413 K/mm3 (140-440) 09/01/20 06:45 Lymph % (Auto) 8.1 % (13.4-35.0) L 08/31/20 08:23 [place] % (Auto) 14.1 % (0.0-7.3) H 08/31/20 08:23 Eos % (Auto) 0.0 % (0.0-4.3) 08/31/20 08:23 Baso % (Auto) 0.3 % (0.0-1.8) 08/31/20 08:23 Lymph # (Auto) 0.6 K/mm3 (1.2-5.4) L 08/31/20 08:23 [place] # (Auto) 1.0 K/mm3 (0.0-0.8) H 08/31/20 08:23 Eos # (Auto) 0.0 K/mm3 (0.0-0.4) 08/31/20 08:23 Baso # (Auto) 0.0 K/mm3 (0.0-0.1) 08/31/20 08:23 Add Manual Diff Complete 08/30/20 20:50 Total Counted 100 08/30/20 20:50 Seg Neutrophils % 77.5 % (40.0-70.0) H 08/31/20 08:23 Seg Neuts % (Manual) 71.0 % (40.0-70.0) H 08/30/20 20:50 Lymphocytes % (Manual) 16.0 % (13.4-35.0) 08/30/20 20:50 Monocytes % (Manual) 13.0 % (0.0-7.3) H 08/30/20 20:50 Nucleated RBC % Not Reportable 08/30/20 20:50 Seg Neutrophils # 5.6 K/mm3 (1.8-7.7) 08/31/20 08:23 Seg Neutrophils # Man 7.3 K/mm3 (1.8-7.7) 08/30/20 20:50 Band Neutrophils # 0.0 K/mm3 08/30/20 20:50 Lymphocytes # (Manual) 1.6 K/mm3 (1.2-5.4) 08/30/20 20:50 Abs React Lymphs (Man) 0.0 K/mm3 08/30/20 20:50 Monocytes # (Manual) 1.3 K/mm3 (0.0-0.8) H 08/30/20 20:50 Eosinophils # (Manual) 0.0 K/mm3 (0.0-0.4) 08/30/20 20:50 Basophils # (Manual) 0.0 K/mm3 (0.0-0.1) 08/30/20 20:50 Metamyelocytes # 0.0 K/mm3 08/30/20 20:50 Myelocytes # 0.0 K/mm3 08/30/20 20:50 Promyelocytes # 0.0 K/mm3 08/30/20 20:50 Blast Cells # 0.0 K/mm3 08/30/20 20:50 WBC Morphology Not Reportable 08/30/20 20:50 Hypersegmented Neuts Not Reportable 08/30/20 20:50 Hyposegmented Neuts Not Reportable 08/30/20 20:50 Hypogranular Neuts Not Reportable 08/30/20 20:50 Smudge Cells Not Reportable 08/30/20 20:50 Toxic Granulation Not Reportable 08/30/20 20:50 Toxic Vacuolation Not Reportable 08/30/20 20:50 Dohle Bodies Not Reportable 08/30/20 20:50 Pelger-Huet Anomaly Not Reportable 08/30/20 20:50 Marcelo Rods Not Reportable 08/30/20 20:50 Platelet Estimate Not Reportable 08/30/20 20:50 Clumped Platelets Not Reportable 08/30/20 20:50 Plt Clumps, EDTA Not Reportable 08/30/20 20:50 Large Platelets Not Reportable 08/30/20 20:50 Giant Platelets Not Reportable 08/30/20 20:50 Platelet Satelliting Not Reportable 08/30/20 20:50 Plt Morphology Comment Not Reportable 08/30/20 20:50 RBC Morphology Normal 08/30/20 20:50 Dimorphic RBCs Not Reportable 08/30/20 20:50 Polychromasia Not Reportable 08/30/20 20:50 Hypochromasia Not Reportable 08/30/20 20:50 Poikilocytosis Not Reportable 08/30/20 20:50 Anisocytosis Not Reportable 08/30/20 20:50 Microcytosis Not Reportable 08/30/20 20:50 Macrocytosis Not Reportable 08/30/20 20:50 Spherocytes Not Reportable 08/30/20 20:50 Pappenheimer Bodies Not Reportable 08/30/20 20:50 Sickle Cells Not Reportable 08/30/20 20:50 Target Cells Not Reportable 08/30/20 20:50 Tear Drop Cells Not Reportable 08/30/20 20:50 Ovalocytes Not Reportable 08/30/20 20:50 Helmet Cells Not Reportable 08/30/20 20:50 Bacon-Hagan Bodies Not Reportable 08/30/20 20:50 Wheatley Rings Not Reportable 08/30/20 20:50 [place] Cells Not Reportable 08/30/20 20:50 Bite Cells Not Reportable 08/30/20 20:50 Crenated Cell Not Reportable 08/30/20 20:50 Elliptocytes Not Reportable 08/30/20 20:50 Acanthocytes (Spur) Not Reportable 08/30/20 20:50 Rouleaux Not Reportable 08/30/20 20:50 Hemoglobin C Crystals Not Reportable 08/30/20 20:50 Schistocytes Not Reportable 08/30/20 20:50 Malaria parasites Not Reportable 08/30/20 20:50 Raymundo Bodies Not Reportable 08/30/20 20:50 Hem Pathologist Commnt No 08/30/20 20:50 D-Dimer 393.96 ng/mlDDU (0-234) H 09/01/20 06:45 Sodium 136 mmol/L (137-145) L 09/02/20 17:51 Potassium 4.5 mmol/L (3.6-5.0) D 09/02/20 17:51 Chloride 98.8 mmol/L (98-107) 09/02/20 17:51 Carbon Dioxide 27 mmol/L (22-30) 09/02/20 17:51 Anion Gap 15 mmol/L 09/02/20 17:51 BUN 18 mg/dL (9-20) 09/02/20 17:51 Creatinine 0.8 mg/dL (0.8-1.3) 09/02/20 17:51 Estimated GFR > 60 ml/min 09/02/20 17:51 BUN/Creatinine Ratio 23 % 09/02/20 17:51 Glucose 114 mg/dL (75-100) H 09/02/20 17:51 POC Glucose 104 mg/dL (70-105) 09/03/20 00:51 Hemoglobin A1c 4.7 % (4-6) 08/31/20 01:00 Calcium 9.0 mg/dL (8.4-10.2) 09/02/20 17:51 Ferritin 5298.0 ng/mL (30.0-300.0) H 09/01/20 06:45 Total Bilirubin 0.90 mg/dL (0.1-1.2) 09/02/20 17:51 AST 212 units/L (5-40) H 09/02/20 17:51 ALT 294 units/L (7-56) H 09/02/20 17:51 Alkaline Phosphatase 168 units/L (35-129) H 09/02/20 17:51 Lactate Dehydrogenase 874 units/L (91-180) H 09/01/20 06:45 C-Reactive Protein 11.00 mg/dL (0.00-1.30) H 08/31/20 01:00 Total Protein 6.9 g/dL (6.3-8.2) 09/02/20 17:51 Albumin < 0.2 g/dL (3.9-5) L 09/02/20 17:51 Albumin/Globulin Ratio 0.0 % 09/02/20 17:51 Procalcitonin 0.25 ng/mL (<0.15) 08/30/20 20:50 Coronavirus (PCR) Positive (Negative) A 08/31/20 09:00 Cassidy/IV: Voiding Method Toilet Active Medications - Current Medications Current Medications: Generic Name Dose Route Start Last Admin Trade Name Freq PRN Reason Stop Dose Admin Acetaminophen 650 mg 08/30/20 23:21 Acetaminophen 325 Mg Tab PO Q4H PRN Pain MILD(1-3)/Fever >100.5/TERRELL Al Hydrox/Mg Hydrox/Simethicone 30 ml 08/30/20 23:21 Alum-Mag Hydroxide-Simethicone [id number]/5ml Oral Liqd 30 Ml PO Q4H PRN Indigestion Ascorbic Acid 500 mg 08/31/20 10:00 09/02/20 11:15 Ascorbic Acid 500 Mg Tab PO 500 mg QDAY [facility] Administration Cholecalciferol 1,000 unit 08/31/20 10:00 09/02/20 11:14 Cholecalciferol (Vit D3) 1000 Unit (25 Mcg) Tab PO 1,000 unit QDAY [facility] Administration Dexamethasone 6 mg 08/31/20 10:00 09/02/20 11:16 Dexamethasone 4 Mg/Ml Vial IV 6 mg DAILY [facility] Administration Enoxaparin Sodium 100 mg 08/31/20 22:00 09/02/20 22:48 Enoxaparin 100 Mg/1 Ml Inj SUB-Q 100 mg Q12HR [facility] Administration Protocol Famotidine 20 mg 08/31/20 10:00 09/02/20 22:48 Famotidine 20 Mg/2 Ml Inj IV 20 mg BID [facility] Administration Sodium Chloride 1,000 mls @ 75 mls/hr 08/30/20 23:30 09/02/20 22:48 Nacl 0.9% 1000 Ml IV 75 mls/hr DIRECT [facility] Administration REMDESIVIR 200 mg/ Sodium 250 mls @ 500 mls/hr 09/02/20 14:03 Chloride IV 09/02/20 14:32 ONCE ONE REMDESIVIR 100 mg/ Sodium 250 mls @ 500 mls/hr 09/03/20 21:00 Chloride IV 09/06/20 21:29 Q24HR@2100 [facility] Magnesium Hydroxide 30 ml 08/30/20 23:21 Magnesium Hydroxide (Mom) Oral Liqd Udc PO Q4H PRN Constipation Metoclopramide HCl 10 mg 08/30/20 23:21 Metoclopramide 10 Mg/2 Ml Inj IV Q6H PRN Nausea And Vomiting Naloxone HCl 0.1 mg 08/30/20 23:21 Naloxone 0.4 Mg/1 Ml Inj IV Q2MIN PRN Res Rate </= 8 or 02 SAT < 92% Ondansetron HCl 4 mg 08/30/20 23:21 Ondansetron 4 Mg/2 Ml Inj IV Q8H PRN Nausea And Vomiting Oxycodone/Acetaminophen 1 tab 08/30/20 23:21 08/31/20 10:10 Oxycodone /Acetaminophen 5-325mg Tab PO 1 tab Q6H PRN Administration Pain, Moderate (4-6) Senna 8.6 mg 08/30/20 23:21 Sennosides 8.6 Mg Tab PO Q12HR PRN Constipation Sodium Chloride 10 ml 08/31/20 10:00 09/02/20 22:48 Sodium Chloride 0.9% 10 Ml Flush Syringe IV 10 ml BID [facility] Administration Sodium Chloride 10 ml 08/30/20 23:21 Sodium Chloride 0.9% 10 Ml Flush Syringe IV PRN PRN LINE FLUSH Sodium Chloride 50 ml 09/02/20 21:00 Sodium Chloride 0.9% 50 Ml Ivpb IV 09/06/20 21:01 Q24HR@2100 [facility] Trazodone HCl 50 mg 08/30/20 23:20 08/31/20 22:51 Trazodone 50 Mg Tab PO 50 mg QHS PRN Administration Insomnia Zinc Sulfate 220 mg 08/31/20 10:00 09/02/20 11:14 Zinc Sulfate 220 Mg Cap PO 220 mg QDAY [facility] Administration
[2020-09-03 09:04] LABS: Alanine Aminotransferase 217 units/L (7-56); Albumin 3.4 g/dL (3.9-5); BUN/Creatinine Ratio 20; Blood Urea Nitrogen 16 mg/dL (9-20); Calcium 8.6 mg/dL (8.4-10.2); Hemolysis Index 5
--- NOTE | 2020-09-03 09:26 | Progress Note ---
Assessment and Plan 49 y/o obese male with acute respiratory failure secondary to COVID 19 pneumonia 09/03/20: Proning should continue, even with improvement in oxygenation. Continue steroids and Remdesivir. Will give IV lasix 20 today. Suggest checking labs in am to follow up Na, K and Cr. Will continue to follow. 1. Prone as tolerated during the day and sleep prone at night if possible. 2. Agree with steroids and Remdesivir. Based on ID recs from another patient should be a candidate for Actemra given CRP of 11 3. Agree with PRN lasix 4. Maintain sats >88% 5. Guarded prognosis. Subjective Date of service: 09/03/20 Interval history: Per charting, down to 2 liters. NC. Good sats. Not a candidate for actemra. Objective Vital Signs - 12hr 09/02/20 09/02/20 09/03/20 21:29 21:53 00:14 Temperature Pulse Rate 77 Respiratory Rate Blood Pressure 114/69 O2 Sat by Pulse 95 96 96 Oximetry 09/03/20 09/03/20 04:44 06:02 Temperature 98.7 F Pulse Rate 55 L Respiratory 6 L 16 Rate Blood Pressure 127/75 O2 Sat by Pulse 97 Oximetry CBC and BMP: 09/01/20 06:45 09/03/20 08:03 ABG, PT/INR, D-dimer: PT/INR, D-dimer D-Dimer 393.96 ng/mlDDU (0-234) H 09/01/20 06:45 Abnormal lab findings: Abnormal Labs 08/30/20 08/30/20 08/30/20 20:50 20:50 20:50 RBC Hgb Hct MCV MCH MCHC RDW Lymph % (Auto) Tripp % (Auto) Lymph # (Auto) [place]pp # (Auto) Seg Neutrophils % Seg Neuts % (Manual) Monocytes % (Manual) Monocytes # (Manual) D-Dimer 612.11 H Sodium Potassium Chloride BUN Glucose 109 H Calcium Ferritin 6614.0 H Total Bilirubin AST ALT Alkaline Phosphatase Lactate Dehydrogenase 1104 H C-Reactive Protein 12.20 H Albumin Coronavirus (PCR) 08/30/20 08/30/20 08/31/20 20:50 20:50 01:00 RBC 3.56 L Hgb 11.6 L Hct 34.2 L MCV 96 H MCH 33 H MCHC RDW 13.1 L Lymph % (Auto) Tripp % (Auto) Lymph # (Auto) Tripp # (Auto) Seg Neutrophils % Seg Neuts % (Manual) 71.0 H Monocytes % (Manual) 13.0 H Monocytes # (Manual) 1.3 H D-Dimer Sodium 133 L Potassium Chloride 93.4 L BUN Glucose 111 H 117 H Calcium Ferritin Total Bilirubin 2.30 H AST 194 H ALT 106 H Alkaline Phosphatase Lactate Dehydrogenase 1070 H C-Reactive Protein 11.00 H Albumin Coronavirus (PCR) 08/31/20 08/31/20 08/31/20 01:00 08:23 08:23 RBC 3.36 L Hgb 10.8 L Hct 31.8 L MCV 95 H MCH MCHC RDW 12.7 L Lymph % (Auto) 8.1 L Tripp % (Auto) 14.1 H Lymph # (Auto) 0.6 L Tripp # (Auto) 1.0 H Seg Neutrophils % 77.5 H Seg Neuts % (Manual) Monocytes % (Manual) Monocytes # (Manual) D-Dimer Sodium Potassium Chloride 97.8 L BUN Glucose 136 H Calcium Ferritin 5794.0 H Total Bilirubin 1.80 H AST 122 H ALT 93 H Alkaline Phosphatase Lactate Dehydrogenase C-Reactive Protein Albumin 3.7 L Coronavirus (PCR) 08/31/20 09/01/20 09/01/20 09:00 06:45 06:45 RBC 3.24 L Hgb 10.8 L Hct 31.2 L MCV 96 H MCH 33 H MCHC 35 H RDW 12.7 L Lymph % (Auto) [place]pp % (Auto) Lymph # (Auto) Tripp # (Auto) Seg Neutrophils % Seg Neuts % (Manual) Monocytes % (Manual) Monocytes # (Manual) D-Dimer Sodium Potassium Chloride BUN Glucose Calcium Ferritin Total Bilirubin 1.60 H AST 161 H ALT 138 H Alkaline Phosphatase Lactate Dehydrogenase 874 H C-Reactive Protein Albumin 3.7 L Coronavirus (PCR) Positive A 09/01/20 09/01/20 09/01/20 06:45 06:45 14:22 RBC Hgb Hct MCV MCH MCHC RDW Lymph % (Auto) [place]pp % (Auto) Lymph # (Auto) [place]pp # (Auto) Seg Neutrophils % Seg Neuts % (Manual) Monocytes % (Manual) Monocytes # (Manual) D-Dimer 393.96 H Sodium Potassium Chloride 97.7 L BUN 21 H Glucose 127 H Calcium Ferritin 5298.0 H Total Bilirubin 1.90 H AST 501 H ALT 264 H Alkaline Phosphatase 155 H Lactate Dehydrogenase C-Reactive Protein Albumin Coronavirus (PCR) 09/02/20 09/02/20 09/03/20 07:25 17:51 08:03 RBC Hgb Hct MCV MCH MCHC RDW Lymph % (Auto) [place]pp % (Auto) Lymph # (Auto) Tripp # (Auto) Seg Neutrophils % Seg Neuts % (Manual) Monocytes % (Manual) Monocytes # (Manual) D-Dimer Sodium 136 L 136 L 136 L Potassium 3.5 L Chloride BUN Glucose 114 H Calcium 8.2 L Ferritin Total Bilirubin AST 219 H 212 H 105 H ALT 270 H 294 H 217 H Alkaline Phosphatase 140 H 168 H 141 H Lactate Dehydrogenase 566 H C-Reactive Protein Albumin 3.2 L < 0.2 L 3.4 L Coronavirus (PCR)
[2020-09-03 10:37] LABS: Hepatitis B Surface Antigen Non-Reactive (Negative); Hepatitis C Virus Antibody Non-Reactive (NonReactive)
[2020-09-03] MEDS: FAMOTIDINE 20 MG/2 ML INJ IV SCH ×2 (10:56→22:32)
[2020-09-03] MEDS: ZINC SULFATE 220 MG CAP PO SCH (10:56)
[2020-09-03] MEDS: ASCORBIC ACID 500 MG TAB PO SCH (10:56)
[2020-09-03] MEDS: ENOXAPARIN 100 MG/1 ML INJ SUB-Q SCH ×2 (10:57→22:31)
[2020-09-03] MEDS: dexAMETHasone 4 MG/ML VIAL IV SCH (10:57)
[2020-09-03] MEDS: CHOLECALCIFEROL (VIT D3) 1000 UNIT (25 mcg) TAB PO SCH (10:57)
[2020-09-03] MEDS ORDERED: FUROSEMIDE 20 MG/2 ML INJ IV NR (11:00)
--- NOTE | 2020-09-03 13:51 | Progress Note ---
Assessment and Plan Cultures: SARS CoV2 PCR: Positive A/P: 49-year-old male with hypertension, hyperlipidemia, admitted to the hospital on 08/30/2020 with shortness of breath. Tested positive for COVID-19: #Bilateral pneumonia: Secondary to COVID-19 #Acute hypoxic respiratory failure: On nasal cannula #Transaminitis: Likely secondary to COVID-19. Hepatitis panel negative Recs: -IV/PO Dexamethasone 6 mg daily x 10 days -Remdesivir x 5 days, monitor LFTs, if any worsening, will need to discontinue -Currently, he does not meet hospital criteria for Tocilizumab at this point, if hypoxia worsens, will reevaluate -prophylactic anticoagulation based on d-dimer per hospital protocol -trend ferritin, LDH, d-dimer, CRP every 2-3 days for risk stratification and to assess disease progression Belinda Day MD, FACP [facility] O: [phone] F: [phone] Subjective Date of service: 09/03/20 Interval history: No fever. Remains on oxygen. Objective - Exam Narrative Exam: Physical Exam (reviewed in chart to minimize risk of transmission) Constitutional: deferred Head, Ears, Nose: deferred Eyes: deferred Neck: deferred Oral: deferred Cardiovascular: deferred Respiratory: deferred GI: deferred Musculoskeletal: deferred Skin: deferred Hem/Lymphatic: deferred Psych: deferred Neurological: deferred - Constitutional Vitals: Vital Signs Temp Pulse Resp BP Pulse Ox 98.7 F 55 L 16 127/75 94 09/03/20 04:44 09/03/20 04:44 09/03/20 06:02 09/03/20 04:44 09/03/20 10:00 Temperature -Last 24 Hours Temperature 98.7 F - Labs CBC & Chem 7: 09/01/20 06:45 09/03/20 08:03 Labs: Abnormal lab results 09/02/20 09/03/20 09/03/20 Range/Units 17:51 08:03 08:03 Sodium 136 L 136 L (137-145) mmol/L Glucose 114 H (75-100) mg/dL Ferritin 2442.0 H (30.0-300.0) ng/mL AST 212 H 105 H (5-40) units/L ALT 294 H 217 H (7-56) units/L Alkaline Phosphatase 168 H 141 H (35-129) units/L Lactate Dehydrogenase 566 H (91-180) units/L Albumin < 0.2 L 3.4 L (3.9-5) g/dL
[2020-09-03] MEDS ORDERED: REMDESIVIR 200 MG in SODIUM CHLORIDE 0.9% 250ML 250 ML IV ONE (14:00)
[2020-09-03] MEDS ORDERED: SODIUM CHLORIDE 0.9% 50 ML IVPB IV SCH (14:30)
[2020-09-04 04:36] VITALS: BP 118/73
--- NOTE | 2020-09-04 07:20 | Discharge Summary ---
Providers - Providers Date of Admission: 08/30/20 22:11 Date of discharge: 09/04/20 Attending physician: JESSI GRANT MD 08/30/20 23:21 Consult to Physician [CONS] Urgent Comment: Consulting Provider: ROB DIAZ Physician Instructions: Reason For Exam: Covid positive 09/01/20 12:43 Consult to Physician [CONS] Routine Comment: Consulting Provider: KANDICE MENDEZ Physician Instructions: Reason For Exam: hypoxic respiratory failure Primary care physician: HELP DESK REPRESENTATIVE Hospitalization Reason for admission: COVID-19 infection, acute hypoxic respiratory failure Condition: Serious Pertinent studies: CTA chest Hospital course: History of present illness: 49-year-old male that presents emergency room with complaints of difficulty breathing and respiratory symptoms. Patient found to have Covid pneumonia. Patient is hypoxic. Patient is currently on oxygen therapy. Patient has not had the COVID-19 vaccine. WBC 10.3, hemoglobin 11.6, platelets 292, D-dimer 612.11, sodium 133, potassium 4.3, creatinine 1.0 serum glucose 111 ferritin six 614.0, AST 192, ALT 106, lactate dehydrogenase 1104, CEA reactive protein 12.2. Patient seen at bedside in ED. Patient is on oxygen by nasal cannula. Patient said he was tested posit elias for Covid 19. He reported a history of shortness of breath for about 1 week that made him go and check for Covid. I reviewed patient medication records vital signs and lab values. Will start patient on Covid protocol including airborne and contact isolation. Hospital course 08/31: Patient on 4 L of oxygen await ID for remdesivir ordered. Continue steroids at this time per protocol. Will change to full dose anticoagulation although CTA is negative for PE. Will monitor inflammatory markers. 15 minutes counseling given to the patient on tobacco use and marijuana use he verbalized understanding. We will give 20 of Lasix x3 days due to borderline low blood pressure. And continue to monitor for improvement. 09/01: Continue steroid therapy for COVID-19. LFTs elevated likely secondary to the Covid virus will defer remdesivir to ID. Wean oxygen as tolerated. Condition remains guarded. 09/03; patient is on remdesivir and Decadron. Will follow LFTs. Mild elevation. Patient is on 2 L of oxygen. Continue current management and wean oxygen as tolerated. Patient can be discharged if patient is off oxygen. Will Do 6-minute walk test. (1) COVID-19 Current Visit: Yes Status: Acute Plan to address problem: Continue isolation airborne Continue systemic steroid and empiric antibiotic Encourage patient prone position and the use of incentive spirometer [place] inflammatory markers Patient has elevated D-dimer we will check CT of the chest rule out PE ID consult. Follow-up with plan of care. Ascorbic acid, zinc sulfate, selenium, and vitamin D supplements (2) Acute respiratory failure with hypoxia Current Visit: Yes Status: Acute Plan to address problem: Continue bronchodilator and oxygen supplement ABG and faculty i on call medical assistant consult (3) Marijuana use Current Visit: Yes Status: Acute Plan to address problem: Discussed cessation (4) mild hypertensive (5) elevated LFTs Patient was treated with IV steroids, remdesivir was ordered but was not available in the hospital until yesterday. Patient showed improvement and he was saturating well on room air. 6-minute walk was done and patient was saturating 91%. Patient stated he has been walking in the room the whole time and did not have any problems. Patient is doing well and wants to go home. Patient had CTA which did not show any blood clot. Patient had elevated D-dimer and at the time of discharge I discharged him with Eliquis for 2 weeks and Decadron to finish a total of 10 days. Patient was hemodynamically stable at the time of discharge. Management plan was discussed with the patient and was in agreement with the plan of care. Disposition: DC-01 TO HOME OR SELFCARE Final Discharge Diagnosis (Prints w/discharge instructions): Acute hypoxic respiratory failure. COVID-19 infection Time spent for discharge: 35-minutes - Discharge Diagnoses (1) Acute respiratory failure with hypoxia Status: Acute (2) COVID-19 Status: Acute (3) DVT prophylaxis Status: Acute Core Measure Documentation - Palliative Care Palliative Care/ Comfort Measures: Not Applicable - Core Measures Any of the following diagnoses?: none Exam - Physical Exam Narrative exam: Not in cardiopulmonary distress. The patient appeared well nourished and normally developed. Vital signs as documented. Head exam is unremarkable. No scleral icterus . Neck is without jugular venous distension, thyromegaly, or carotid bruits. Lungs are clear to auscultation. Cardiac exam reveals regular rate and Rhythm. Abdominal exam reveals normal bowel sounds, nontender, no organomegaly. Extremities are nonedematous and both femoral and pedal pulses are normal. JAIL MANAGER: Alert and oriented 3. No focal weakness. - Constitutional Vitals: Temp Pulse Resp BP Pulse Ox 98.2 F 62 28 H 118/73 94 09/04/20 04:14 09/04/20 04:14 09/04/20 04:14 09/04/20 04:14 09/04/20 06:23 Plan Activity: no restrictions Weight Bearing Status: Full Weight Bearing Diet: regular Follow up with: PRIMARY CARE, [Primary Care Provider] - 3-5 Days Prescriptions: Dexamethasone 6 mg PO DAILY #5 tablet Apixaban [Eliquis] 5 mg PO BID #30 tablet
[2020-09-04 09:24] LABS: Alanine Aminotransferase 224 units/L (7-56); Albumin 3.4 g/dL (3.9-5); BUN/Creatinine Ratio 19; Blood Urea Nitrogen 17 mg/dL (9-20); Hemolysis Index 3
[2020-09-04] MEDS: FAMOTIDINE 20 MG/2 ML INJ IV SCH (09:30)
[2020-09-04] MEDS: ASCORBIC ACID 500 MG TAB PO SCH (09:30)
[2020-09-04] MEDS: ZINC SULFATE 220 MG CAP PO SCH (09:30)
[2020-09-04] MEDS: ENOXAPARIN 100 MG/1 ML INJ SUB-Q SCH (09:31)
[2020-09-04] MEDS: dexAMETHasone 4 MG/ML VIAL IV SCH (09:31)
[2020-09-04] MEDS: CHOLECALCIFEROL (VIT D3) 1000 UNIT (25 mcg) TAB PO SCH (09:31)
[2020-09-04] MEDS ORDERED: FAMOTIDINE 20 MG TAB PO SCH (10:00)
[2020-09-04] MEDS ORDERED: REMDESIVIR 100 MG in SODIUM CHLORIDE 0.9% 250ML 250 ML IV SCH (21:00)
== END 2020-09-04 11:55 | disposition home or self-care (01) | DRG 177 ==
LOC: ED 16:28 → 3A 22:11
PROVIDERS: ADMIT Internal Medicine Geriatric Medicine; ATTEND Internal Medicine
PROC: XW033E5 Introduction of Remdesivir Anti-infective into Peripheral Vein, Percutaneous Approach, New Technology Group 5 (ICD-10-PCS; principal; 2020-09-01)
DX: U07.1 COVID-19 (principal); J96.01 Acute respiratory failure with hypoxia; J12.82 Pneumonia due to coronavirus disease 2019; F12.90 Cannabis use, unspecified, uncomplicated; R74.01 Elevation of levels of liver transaminase levels; Z82.49 Family history of ischemic heart disease and other diseases of the circulatory system
CPT/HCPCS: 36415; 71046; 71275; 80053; 80074; 82728; 82947; 82962; 83036; 83615; 84145; 85007; 85025; 85027; 85379; 86140; 93306; 93970; G0378; J0456; J0696; J1100; J1650; J1940; J2405; J7030; J7050; Q9967; U0003